=== PATIENT | male | born 1955 | race Caucasian/White ===

== ENCOUNTER 2017-05-14 12:48 | Emergency (ER) | payer BC ==
[~2017-05-14] VITALS: Ht 167.6 cm; Wt 78.8 kg
[~2017-05-14 12:48] MED LIST: ACET-1325; ASCA500 PO; CITRACAL/VIT D PO; CLON0.5T3 PO; INSDGI SC; JANUMET PO; METO50TA7 PO; MIRAPEX 0.5 MG PO; MULT-506 PO; NRN600 PO; OFLO0.3S OP; OMEG10007 PO; PRED1SUS3; TRAM-10 PO
[2017-05-14 12:53] VITALS: TEMP 37.4; Ht 167.6 cm; Wt 78.8 kg
--- NOTE | 2017-05-14 13:10 | EMERGENCY ROOM VISIT NOTE ---
History Report prepared by Matheus: Shalom Uribe Under the Supervision of: Dr. Antoinette Damon D.O. First contact with patient: 12:55 Chief Complaint: URINARY SYMPTOMS Stated Complaint: BLOOD IN URINE, [place] TO GO Nursing Triage Summary: pt reports yesterday afternoon feeling poorly like getting the flu. all day yesterday when urinating had pain and burning, also noticed blood. has non productive cough, sore throat, light fever' pt reports cathing self last night and got a little more out. see dr reyes for urology History of Present Illness The patient is a 62 year old male who presents to the Emergency Room with complaints of abnormal urinary symptoms that began yesterday. He has a past medical history of diabetes, a urethral stricture, and past UTIs. Because of this, he is supposed to place a catheter in his bladder once a week. He states that he has not been doing it as often as he should be. Yesterday while he was mowing the lawn, he suddenly began to feel diffuse body aches. He then could not control his urine and noticed that he was urinating blood. He is also experiencing burning with urination as well. He denies any other penile discharge, scrotal swelling, or rashes. He also denies any fevers or abdominal pain. He is experiencing chills. Source of History: patient Onset: yesterday Position: other () Symptom Intensity: moderate Quality: other (Burning with urination, hematuria, and incontinence) Timing: constant Associated Symptoms: + chills, No fevers, No abdominal pain, No rash Note: He denies any penile discharge or scrotal swelling. Review of Systems See HPI for pertinent positives & negatives. A total of 10 systems reviewed and were otherwise negative. Past Medical & Surgical Medical Problems: (1) Diabetes Surgical Problems: (1) Urethral stricture Family History Omitted secondary to the patient's age. Social History Smoking Status: Current Some Day Smoker Smokeless Tobacco Use: No Drug Use: none Marital Status: Housing Status: lives with family Current/Historical Medications Scheduled Ascorbic Acid (Vitamin C), 500 MG PO DAILY Calcium Carbonate-Vitamin D (Calcium + D), 1 TAB PO DAILY Cephalexin (Keflex), 1 CAP PO BID Clonazepam (Clonazepam), 0.5 MG PO HS Fish Oil ([place]-3), 2 CAP PO DAILY Gabapentin (Gabapentin), 600 MG PO BID Hydroxychloroquine Sulfate (Plaquenil), 400 MG PO DAILY Insulin Glargine (Lantus Solostar), 12 UNITS SC HS Liraglutide (Victoza), 1.8 MCG INJ DAILY Lovastatin (Mevacor), 40 MG PO DAILY Metformin Hcl (Glucophage), 1,000 MG PO BIDM Metoprolol Succinate (Metoprolol Succinate ER), 50 MG PO DAILY Mirabegron (Myrbetriq Er), 50 MG PO DAILY Multivitamin (Multivitamin), 1 TAB PO DAILY Pramipexole Dihydrochloride (Pramipexole Dihydrochlori), 0.5 MG PO BID Ramipril (Ramipril), 5 MG PO DAILY Tramadol HCl (Tramadol HCl), 100 MG PO HS Triamcinolone Acet (Triamcinolone Acetonide), 1 APPLN TOP 2-3XDAILY Allergies Coded Allergies: Penicillins (Unverified Allergy, Mild, Hives, itching, 10/31/15) Physical Exam Vital Signs Date Time Temp Pulse Resp B/P (MAP) Pulse Ox O2 Delivery O2 Flow Rate FiO2 05/14/17 18:05 75 18 120/72 93 05/14/17 16:19 74 18 101/63 96 Room Air 05/14/17 14:40 72 18 120/72 96 Room Air 05/14/17 12:53 37.4 76 18 151/96 95 Room Air Physical Exam GENERAL: alert, well appearing, well nourished, no distress, non-toxic EYE EXAM: normal conjunctiva, PERRL and EOM's grossly intact OROPHARYNX: no exudate, no erythema, lips, buccal mucosa, and tongue normal and mucous membranes are dry NECK: supple, no nuchal rigidity, no adenopathy, non-tender LUNGS: Clear to auscultation. Normal chest wall mechanics HEART: no murmurs, S1 normal and S2 normal ABDOMEN: abdomen soft, non-tender, normo-active bowel sounds, no masses, no rebound or guarding. BACK: Back is symmetrical on inspection and there is no deformity, no midline tenderness, no CVA tenderness. SKIN: no rashes and no bruising UPPER EXTREMITIES: upper extremities are grossly normal. LOWER EXTREMITIES: No pitting edema. NEURO EXAM: Normal sensorium, cranial nerves II-XII grossly intact, normal speech, no gross weakness of arms, no gross weakness of legs. Medical Decision & Procedures ER Provider Diagnostic Interpretation: Radiology results have been interpreted by the radiologist and reviewed by me. EXAMINATION: RENAL ULTRASOUND CLINICAL HISTORY: Back pain. Urinary tract infection. COMPARISON STUDY: CT scan performed October 2006 FINDINGS: The right kidney measures 12.8 cm.. The left kidney measures 12.1 cm.. There is no evidence of hydronephrosis. There are multiple bilateral renal cysts. The largest in the right measures 10.3 cm. The largest on the left measures 7.6 cm. Several cysts contain thin septations. There are no significant mural nodules. There is mild irregular bladder wall thickening. The prostate is enlarged measuring 4.7 cm. Neither ureteral jet was visualized. IMPRESSION : 1. Multiple large bilateral renal cysts 2. No evidence of hydronephrosis 3. Moderate irregular bladder wall thickening, possibly secondary to bladder outlet obstruction, given the enlarged prostate which measures 4.7 cm. Electronically signed by: Som Stevenson M.D. 05/14/2017 4:58 PM Dictated Date/Time: 05/14/2017 4:56 PM Laboratory Results 05/14/17 13:28 Red Blood Count 4.78, Mean Corpuscular Volume 85.6, Mean Corpuscular Hemoglobin 29.7, Mean Corpuscular Hemoglobin Concent 34.7, Mean Platelet Volume 9.2, Neutrophils (%) (Auto) 82.5, Lymphocytes (%) (Auto) 8.3, Monocytes (%) (Auto) 8.1, Eosinophils (%) (Auto) 0.6, Basophils (%) (Auto) 0.1, Neutrophils # (Auto) 11.56, Lymphocytes # (Auto) 1.16, Monocytes # (Auto) 1.13, Eosinophils # (Auto) 0.08, Basophils # (Auto) 0.01 05/14/17 13:28 Test 05/14/17 13:28 05/14/17 15:10 White Blood Count 13.99 K/uL (4.8-10.8) Red Blood Count 4.78 M/uL (4.7-6.1) Hemoglobin 14.2 g/dL (14.0-18.0) Hematocrit 40.9 % (42-52) Mean Corpuscular Volume 85.6 fL (80-100) Mean Corpuscular Hemoglobin 29.7 pg (25-34) Mean Corpuscular Hemoglobin Concent 34.7 g/dl (32-36) Platelet Count 178 K/uL (130-400) Mean Platelet Volume 9.2 fL (7.4-10.4) Neutrophils (%) (Auto) 82.5 % Lymphocytes (%) (Auto) 8.3 % Monocytes (%) (Auto) 8.1 % Eosinophils (%) (Auto) 0.6 % Basophils (%) (Auto) 0.1 % Neutrophils # (Auto) 11.56 K/uL (1.4-6.5) Lymphocytes # (Auto) 1.16 K/uL (1.2-3.4) Monocytes # (Auto) 1.13 K/uL (0.11-0.59) Eosinophils # (Auto) 0.08 K/uL (0-0.5) Basophils # (Auto) 0.01 K/uL (0-0.2) RDW Standard Deviation 42.0 fL (36.4-46.3) RDW Coefficient of Variation 13.4 % (11.5-14.5) Immature Granulocyte % (Auto) 0.4 % Immature Granulocyte # (Auto) 0.05 K/uL (0.00-0.02) Anion Gap 5.0 mmol/L (3-11) Est Creatinine Clear Calc Drug Dose 73.7 ml/min Estimated GFR () 91.8 Estimated GFR (Non- 79.2 BUN/Creatinine Ratio 17.0 (10-20) Lactic Acid Level 1.6 mmol/L (0.4-2.0) Calcium Level 8.9 mg/dl (8.5-10.1) Total Bilirubin 1.0 mg/dl (0.2-1) Aspartate Amino Transf (AST/SGOT) 12 U/L (15-37) Alanine Aminotransferase (ALT/SGPT) 24 U/L (12-78) Alkaline Phosphatase 104 U/L (45-117) Total Protein 6.5 gm/dl (6.4-8.2) Albumin 3.3 gm/dl (3.4-5.0) Globulin 3.2 gm/dl (2.5-4.0) Albumin/Globulin Ratio 1.0 (0.9-2) Urine Color YELLOW Urine Appearance CLEAR (CLEAR) Urine pH 6.5 (4.5-7.5) Urine Specific [place] 1.020 (1.000-1.030) Urine Protein 1+ (NEG) Urine Glucose (UA) NEG (NEG) Urine Ketones NEG (NEG) Urine Occult Blood 3+ (NEG) Urine Nitrite POS (NEG) Urine Bilirubin NEG (NEG) Urine Urobilinogen NEG (NEG) Urine Leukocyte Esterase MODERATE (NEG) Urine WBC (Auto) >30 /hpf (0-5) Urine RBC (Auto) >30 /hpf (0-4) Urine Hyaline Casts (Auto) 1-5 /lpf (0-5) Urine Epithelial Cells (Auto) 0-5 /lpf (0-5) Urine Bacteria (Auto) 4+ (NEG) Laboratory results per my review. Medications Administered Medications (Trade) Dose Ordered Sig/Katerina Route Start Time Stop Time Status Last Admin Dose Admin Ceftriaxone Sodium (Rocephin Inj) 1 gm NOW STAT IV 05/14/17 15:45 05/14/17 15:46 DC 05/14/17 15:54 1 GM ED Course 1255: The patient was evaluated in room A9. A complete history and physical exam was performed. 1322: Blader scan revealed 52 ml of urine. 1545: Ordered Rocephin Inj 1 gm IV 1712: I updated the patient at this time. He is trying to urinate. 1729: The patient was able to urinate and feels better. He also feels like he was able to empty his bladder. 1751: Upon reevaluation, the patient is feeling better. I discussed the findings and the treatment plan with the patient. He verbalizes agreement and understanding. He was discharged home. Medical Decision Differential diagnosis: Etiologies such as renal colic, infections, inflammatory bowel disease, UTI, urinary retention, urethral stricture, and medication ADR. No evidence of DKA, TONI, doubt bacteremia/sepsis. Pt improved here with meds/ IVF. Able to urinate and felt stream was improved and that he could adequately empty his bladder. Discussed f/u with urology, sx to watch/return for, he verbalized understanding and was agreeable with plan. VS stable, ambulated with a steady gait and well appearing. No clinical findings of pyelo, doubt renal stone. Likely component of bladder outlet obstruction due to enlarged prostate. Medication Reconcilliation Current Medication List: was personally reviewed by me Blood Pressure Screening Patient's blood pressure: Elevated blood pressure Blood pressure disposition: Elevated BP felt to be situational Impression Primary Impression: Urinary tract infection Additional Impression: Dysuria Scribe Attestation The scribe's documentation has been prepared under my direction and personally reviewed by me in its entirety. I confirm that the note above accurately reflects all work, treatment, procedures, and medical decision making performed by me. Departure Information Dispostion Home / Self-Care Prescriptions Cephalexin (KEFLEX) 500 Mg Cap 1 CAP PO BID for 7 Days, #14 CAP Prov: Antoinette Damon, DO 05/14/17 Referrals No Doctor, Assigned (PCP) Forms HOME CARE DOCUMENTATION FORM, IMPORTANT VISIT INFORMATION Patient Instructions My [facility] Additional Instructions Please call and follow-up with Dr. Reyes. Please take the antibiotics as prescribed and drink more water. Continue your other usual medications and check your blood sugar daily. If you have abdominal pain, worsening back pain, fevers/chills, are unable to urinate, are passing blood clots with urination, develop dizziness, vomiting, or you have any other new or concerning symptoms, please return to the emergency room. Problem Qualifiers Primary Impression: Urinary tract infection Urinary tract infection type: acute cystitis Hematuria presence: with hematuria Qualified Codes: N30.01 - Acute cystitis with hematuria
[2017-05-14] MEDS ORDERED: TPRSR/50 PO (13:42)
[2017-05-14] MEDS ORDERED: MIRA1TAB3 PO (13:42)
[2017-05-14] MEDS ORDERED: MRP5 PO (13:42)
[2017-05-14] MEDS ORDERED: ULT50 PO (13:42)
[2017-05-14] MEDS ORDERED: KLN5X PO (13:42)
[2017-05-14] MEDS ORDERED: INSDGIPEN SC (13:42)
[2017-05-14] MEDS ORDERED: PLQ200 PO (13:42)
[2017-05-14] MEDS ORDERED: METF-384 PO (13:42)
[2017-05-14] MEDS ORDERED: RAMI5CAP PO (13:42)
[2017-05-14 13:48] LABS: BASO % 0.1 %; BASO ABS # 0.01 K/uL (0-0.2); COMPLETE YES; EOS % 0.6 %; HEMATOCRIT 40.9 % (42-52); IG% 0.4 %; LYMPH % 8.3 %; LYMPH ABS # 1.16 K/uL (1.2-3.4); MEAN CELL VOLUME 85.6 fL (80-100); MEAN CORPUSCULAR HEMOGLOBIN 29.7 pg (25-34); MEAN CORPUSCULAR HGB CONC 34.7 g/dl (32-36); MEAN PLATELET VOLUME 9.2 fL (7.4-10.4); MONO % 8.1 %; NEUT % 82.5 %; PLATELET COUNT 178 K/uL (130-400); RED BLOOD COUNT 4.78 M/uL (4.7-6.1); WHITE BLOOD COUNT 13.99 K/uL (4.8-10.8)
[2017-05-14] MEDS ORDERED: ASCO500T3 PO (13:54)
[2017-05-14] MEDS ORDERED: NRN600 PO (13:54)
[2017-05-14] MEDS ORDERED: LOVA40TA4 PO (13:54)
[2017-05-14] MEDS ORDERED: HYDR200T5 PO (13:54)
[2017-05-14] MEDS ORDERED: OMEG10007 PO (13:54)
[2017-05-14] MEDS ORDERED: LIRA18IN INJ (13:54)
[2017-05-14] MEDS ORDERED: CALC600T9 PO (13:54)
[2017-05-14] MEDS ORDERED: MULT-506 PO (13:54)
[2017-05-14] MEDS ORDERED: TRIA0.5C4 TOP (13:54)
[2017-05-14 14:06] LABS: CALCIUM 8.9 mg/dl (8.5-10.1); POTASSIUM 4.3 mmol/L (3.5-5.1)
[2017-05-14 15:23] LABS: URINE APPEARANCE CLEAR (CLEAR); URINE BILIRUBIN NEG (NEG); URINE COLOR YELLOW; URINE EPITHELIAL CELL AUTO 0-5 /lpf (0-5); URINE NITRITE POS (NEG); URINE PH 6.5 (4.5-7.5); UROBILINOGEN NEG (NEG); ZZUR CULT IF INDIC CLEAN CATCH YES
[2017-05-14 15:28] LABS: MANUAL MICROSCOPIC REQUIRED? NO; REVIEW REQ? NO
[2017-05-14] MEDS ORDERED: CEFTRIAXONE SOD INJ 1 GM ADDVIAL IV STA (15:45)
--- NOTE | 2017-05-14 16:59 | DIAGNOSTIC IMAGING REPORT ---
EXAMINATION: RENAL ULTRASOUND CLINICAL HISTORY: Back pain. Urinary tract infection. COMPARISON STUDY: CT scan performed October 2006 FINDINGS: The right kidney measures 12.8 cm.. The left kidney measures 12.1 cm.. There is no evidence of hydronephrosis. There are multiple bilateral renal cysts. The largest in the right measures 10.3 cm. The largest on the left measures 7.6 cm. Several cysts contain thin septations. There are no significant mural nodules. There is mild irregular bladder wall thickening. The prostate is enlarged measuring 4.7 cm. Neither ureteral jet was visualized. IMPRESSION : 1. Multiple large bilateral renal cysts 2. No evidence of hydronephrosis 3. Moderate irregular bladder wall thickening, possibly secondary to bladder outlet obstruction, given the enlarged prostate which measures 4.7 cm. Electronically signed by: Som Stevenson M.D. 05/14/2017 4:58 PM Dictated Date/Time: 05/14/2017 4:56 PM
[2017-05-14] MEDS ORDERED: CEPH-571 PO (17:47)
[2017-05-14 18:05] VITALS: BP 120/72; PULSE 75; O2SAT 93
== END 2017-05-14 18:06 | disposition home or self-care (01) ==
LOC: C.EDB 12:49 → C.EDA 18:06
DX: N30.01 Acute cystitis with hematuria (principal); R30.0 Dysuria; E11.9 Type 2 diabetes mellitus without complications; F17.200 Nicotine dependence, unspecified, uncomplicated; Z79.4 Long term (current) use of insulin

== ENCOUNTER → 2017-06-03 | Outpatient (CLI) | payer BC ==
[~2017-06-03] MED LIST changes: -ACET-1325; -ASCA500 PO; +ASCO500T3 PO; +CALC600T9 PO; -CITRACAL/VIT D PO; -CLON0.5T3 PO; +HYDR200T5 PO; -INSDGI SC; +INSDGIPEN SC; -JANUMET PO; +KLN5X PO; +LIRA18IN INJ; +LOVA40TA4 PO; +METF-384 PO; -METO50TA7 PO; +MIRA1TAB3 PO; -MIRAPEX 0.5 MG PO; +MRP5 PO; -OFLO0.3S OP; -PRED1SUS3; +RAMI5CAP PO; +TPRSR/50 PO; -TRAM-10 PO; +TRIA0.5C4 TOP; +ULT50 PO
== END | disposition home or self-care (01) ==
LOC: C.LABSPEC 17:28
PROVIDERS: ATTEND Urology
DX: R39.15 Urgency of urination (principal)

== ENCOUNTER → 2017-12-07 | Outpatient (CLI) | payer OTHER ==
--- NOTE | 2017-12-07 13:53 | DIAGNOSTIC IMAGING REPORT ---
CHEST 2 VIEWS ROUTINE HISTORY: Z87.898 History of fever R05 Cough R09.89 Lung cracklesRule out pn COMPARISON: Chest 09/08/2011. FINDINGS: The lungs are clear. No pleural effusions. No pneumothorax. Left shoulder resurfacing is again noted. Mildly tortuous thoracic aorta. The heart is top normal in size. IMPRESSION: No acute process. Electronically signed by: Mega Alves M.D. 12/07/2017 1:52 PM Dictated Date/Time: 12/07/2017 1:51 PM
== END | disposition home or self-care (01) ==
LOC: C.RAD1850 13:40
PROVIDERS: ATTEND Internal Medicine
DX: R05 Cough (principal); Z87.898 Personal history of other specified conditions; R09.89 Other specified symptoms and signs involving the circulatory and respiratory systems

== ENCOUNTER 2022-03-03 23:28 | Observation (INO) ==
[2022-03-03] MEDS ORDERED: ONDANSETRON INJ 2 MG/ML 2 ML VIAL IV STA (23:37)
--- NOTE | 2022-03-04 00:12 | Emergency Department Note ---
History of Present Illness General Chief complaint: Syncope Stated complaint: DIABETIC/DIZZY/NAUSEA/LIGHTHEADED Time Seen by Provider: 03/03/22 23:34 History of Present Illness This 67 yo presents to the ER complaining of syncopal episode Location: Generalized Quality: Syncope Severity: Moderate Duration: Tonight Timing: Tonight Context: Patient felt his sugar was getting low ate some cookies and then sent home and passed out. Modifying factors: better with eating; worse with activity No extra insulin today. No change in his diet. Patient states when he got home from the [employer] he felt like his blood sugar was low and ate some cookies then sat down and got pale and passed out. His family called EMS and he was brought in. Patient states he feels much better now and has no current medical complaints. Home Medications Medication Instructions Recorded Confirmed Type ascorbic acid (vitamin C) 1,000 mg 1 gm PO 2XWK tab 03/22/19 03/04/22 History tablet hydroxychloroquine 200 mg tablet 400 mg PO QPM tab 03/22/19 03/04/22 History liraglutide 0.6 mg/0.1 mL (18 mg/3 1.8 mg SUBCUT QAM #81 ml 03/22/19 03/04/22 History mL) subcutaneous pen injector metformin 1,000 mg tablet 1,000 mg PO BID #180 tab 03/22/19 03/04/22 History metformin 500 mg tablet 500 mg PO QPM tab 03/22/19 03/04/22 History multivitamin (Multiple Vitamins) 1 tab PO QAM 03/22/19 03/04/22 History omega-3 fatty acids 1,000 mg 1,000 mg PO QAM cap 03/28/20 03/04/22 History capsule (Fish Oil Concentrate) albuterol sulfate 90 mcg/actuation 2 puff INHALATION QID PRN #8.5 g 12/25/20 03/04/22 Rx aerosol inhaler (Ventolin HFA) insulin aspart U-100 100 unit/mL 1 sliding scale dose SUBCUT 12/26/20 03/04/22 History (3 mL) subcutaneous pen (Novolog DIRECTED Flexpen U-100 Insulin aspart) insulin glargine 100 unit/mL (3 24 unit SUBCUT HS ml 04/17/21 03/04/22 History mL) subcutaneous pen (Lantus Solostar U-100 Insulin) CPAP Machine #1 ea 05/30/21 10/23/21 Rx CPAP Supplies #1 ea 05/30/21 10/23/21 Rx gabapentin 600 mg tablet 600 mg PO BID #180 tab 09/12/21 03/04/22 Rx sildenafil 100 mg tablet See Rx Instructions .ROUTE 10/16/21 03/04/22 Rx .COMPLEX #20 tab metoprolol succinate 50 mg 50 mg PO QAM #90 tab 10/17/21 03/04/22 Rx tablet,extended release 24 hr ramipril 5 mg capsule 5 mg PO QAM #90 cap 10/17/21 03/04/22 Rx solifenacin 10 mg tablet (Vesicare) 10 mg PO DAILY #30 tab 10/23/21 03/04/22 Rx pramipexole 0.5 mg tablet 0.5 mg PO BID #180 tab 12/09/21 03/04/22 Rx lovastatin 40 mg tablet 40 mg PO QPM #90 tab 12/26/21 03/04/22 Rx clonazepam 0.5 mg tablet 0.5 mg PO HS #90 tab 02/06/22 03/04/22 Rx tramadol 50 mg tablet 100 mg PO HS PRN #180 tab 02/06/22 03/04/22 Rx Allergies Allergy/AdvReac Type Severity Reaction Status Date / Time Penicillins AdvReac Intermediate Hives, Verified 03/04/22 00:42 itching Past Med/Surg History Medical History Anemia, normocytic normochromic Anxiety [place] esophagus BPH (benign prostatic hyperplasia) Bronchitis HX-LAST FALL-LAST INHALER USE SUMMER 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 persistent despite ACEI d/c. 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 Denies any further recurrence of lightheadedness or palpitations. Presently declines repeat study. Stress echocardiogram 10/2020 unremarkable at 86% MPHR. No arrhythmia at that time.-PCP 05/30/2021 note Type 2 diabetes mellitus Urge incontinence of urine Surgical History Fusion of spine LUMBAR H/O shoulder surgery LEFT H/O sinus surgery H/O umbilical hernia repair (09/05/21) Open Umbilical Hernia Repair - Shane Urena, 09/05/2021 History of cataract surgery RT/LEFT History of colonoscopy History of cystoscopy "COLLAPSED URETHRA" S/P LASIK surgery S/P lumbar laminectomy X 2 [employer] teeth removed Family History Mother Ovarian cancer Father Diabetes Other No family history of adverse response to anesthesia Denies family history of Prostate cancer Breast cancer Lung cancer Colorectal cancer Social History Smoking Status: Current every day smoker Tobacco Type: Cigarettes Cigarettes Per Day: 5-6 CIGS A DAY; Second Hand Exposure: No; Hx Alcohol Use: Yes Alcohol type: beer and hard liquor Hx Substance Use: No Preferred Language: Micronesian Communication Ability: Effective Visual Impairment: Limited Hearing Ability: Normal File Conversion Operator Required: No Beliefs That Will Affect Care: None marital status: / Current Living Situation: Alone current occupational status: retired 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 Feels Safe at Home: Yes Childhood Exposure to Second-Hand Smoke: No caffeine: Yes Dental Care, Regularly: Yes Physical Activity Frequency: Daily Seatbelt Use: never Sunscreen Use: Yes Assistive Devices: Glasses Review of Systems A total of 10 systems reviewed and were otherwise negative Physical Exam Vital Signs Vital Signs - 24 hr 03/03/22 23:40 03/04/22 01:00 Temperature 36.5 C Temperature Source Oral Pulse Rate 70 Pulse Rate [Finger] 75 Respiratory Rate 18 18 Blood Pressure 101/58 L Blood Pressure [Right Arm] 108/65 Blood Pressure Mean 72 Blood Pressure Mean [Right Arm] 79 Blood Pressure Position Standing Pulse Oximetry 94 Oxygen Delivery Method Room Air Sepsis Recent Fever Within 48 Hours No Sepsis New/Unexplained Change in Mental Status No Sepsis Action Taken by Nursing No Action Required VITALS: Vitals are noted on the nurse's note and reviewed by myself. Vital signs stable. GENERAL: Pleasant gentleman, in no acute distress, nondiaphoretic, well- developed well-nourished. SKIN: The skin was without rashes, erythema, edema, or bruising. There is no tenting of the skin. Capillary reflex less than 2 seconds. HEAD: Normocephalic atraumatic. EARS: External auditory canals clear, EYES: Pupils equal round and reactive to light and accommodation. Conjunctivae without injection, sclerae without icterus. Extraocular movements intact. NOSE: Patent, turbinates without inflammation or discharge. MOUTH: Mucous membranes moist. Pharynx without erythema or exudate. Uvula midline. Airway patent. Tongue does not deviate. NECK: Supple without nuchal rigidity. No lymphadenopathy. No thyromegaly. Cervical spine is nontender. No JVD. HEART: Regular rate and rhythm LUNGS: Clear to auscultation bilaterally without wheezes, rales or rhonchi. No retractions or accessory muscle use. ABDOMEN: Positive bowel sounds x 4. Normal tympanic percussion. Soft, nontender, without masses or organomegaly. [place] sign negative. No guarding or rebound tenderness. No CVA tenderness MUSCULOSKELETAL: No muscle atrophy, erythema, or edema noted. NEURO: Patient was alert and oriented to person place and time. Normal sensation to light and sharp touch. No focal neurological deficits. Course Administered Medications Sodium Chloride (Nss 1000ml) 500 mls @ 999 mls/hr IV .Q31M ONE Stop: 03/04/22 02:08 Last Admin: 03/04/22 01:50 Dose: 999 mls/hr Documented by: [id number] Discontinued Medications Ceftriaxone Sodium (Rocephin) 2,000 mg in 70 mls @ 140 mls/hr IV NOW STA Stop: 03/04/22 02:05 Last Admin: 03/04/22 01:49 Dose: 140 mls/hr Documented by: [id number] Ondansetron HCl (Ondansetron Inj 2 Mg/Ml 2 Ml Vial) 4 mg IV NOW STA Stop: 03/03/22 23:38 Last Admin: 03/04/22 00:55 Dose: Not Given Documented by: [id number] Medical Decision Making Medical Records Attestation: I reviewed the patient's medical records. Home Medications Current Medication List: was personally reviewed by me Laboratory Data Attestation: I reviewed the patient's lab results. Result diagrams: 03/04/22 00:06 03/04/22 00:06 Lab Results 03/03/22 03/04/22 03/04/22 Range/Units 23:36 00:06 00:06 WBC 10.45 (4.8-10.8) K/uL RBC 4.75 (4.7-6.1) M/uL Hgb 14.3 (14.0-18.0) g/dL Hct 42.0 (42-52) % MCV 88.4 (80-100) fL MCH 30.1 (25-34) pg MCHC 34.0 (32-36) g/dL RDW Std Deviation 43.7 (36.4-46.3) fL RDW Coeff of Sara 13.5 (11.5-14.5) % Plt Count 253 (130-400) K/uL MPV 9.2 (7.4-10.4) fL Immature Gran % (Auto) 1.8 % Neut % (Auto) 73.1 % Lymph % (Auto) 13.2 % [place] % (Auto) 9.5 % Eos % (Auto) 2.2 % Baso % (Auto) 0.2 % Neut # (Auto) 7.64 H (1.4-6.5) K/uL Lymph # (Auto) 1.38 (1.2-3.4) K/uL [place] # (Auto) 0.99 H (0.11-0.59) K/uL Eos # (Auto) 0.23 (0-0.5) K/uL Baso # (Auto) 0.02 (0-0.2) K/uL Immature Gran # (Auto) 0.19 H (0.00-0.02) K/uL VBG pH (7.36-7.41) VBG pCO2 (38-50) mmHg VBG pO2 mmHg VBG HCO3 mmol/L VBG O2 Saturation % VBG Base Excess mEq/L Sodium 136 (136-145) mmol/L Potassium 4.3 (3.5-5.1) mmol/L Chloride 103 (98-107) mmol/L Carbon Dioxide 24 (21-32) mmol/L Anion Gap 9 (3-11) BUN 29 H (6-23) mg/dl Creatinine 1.30 (0.6-1.4) mg/dl Est Cr Clr Drug Dosing 55.3 ml/min Est GFR ( Amer) 64.5 ml/min Est GFR (Non-Af Amer) 55.7 ml/min BUN/Creatinine Ratio 22.3 H (10-20) Glucose 250 H (70-99(Fasting)) mg/dl POC Glucose 263 H (70-99) mg/dl Calcium 9.0 (8.5-10.1) mg/dl Total Bilirubin 0.4 (0.2-1.0) mg/dl AST 16 (13-39) U/L ALT 17 (7-52) U/L Alkaline Phosphatase 95 (34-104) U/L Troponin I High Sens 57.0 H* (0-20) pg/ml Total Protein 6.2 (6.0-8.3) gm/dl Albumin 3.6 (3.4-5.0) gm/dl Globulin 2.6 (2.5-4.0) gm/dl Albumin/Globulin Ratio 1.4 (0.9-2) Urine Color Urine Appearance (Clear) Urine pH (4.5-7.5) Ur Specific [place] (1.000-1.030) Urine Protein (Negative) Urine Glucose (UA) (Negative) Urine Ketones (Negative) Urine Blood (Negative) Urine Nitrite (Negative) Urine Bilirubin (Negative) Urine Urobilinogen (Negative) Ur Leukocyte Esterase (Negative) Urine WBC (Auto) (0-5) /hpf Urine RBC (Auto) (0-4) /hpf U Hyaline Cast (Auto) (0-5) /lpf U Epithel Cells (Auto) (0-5) /lpf Urine Bacteria (Auto) (Negative) 03/04/22 03/04/22 Range/Units 00:06 00:36 WBC (4.8-10.8) K/uL RBC (4.7-6.1) M/uL Hgb (14.0-18.0) g/dL Hct (42-52) % MCV (80-100) fL MCH (25-34) pg MCHC (32-36) g/dL RDW Std Deviation (36.4-46.3) fL RDW Coeff of Sara (11.5-14.5) % Plt Count (130-400) K/uL MPV (7.4-10.4) fL Immature Gran % (Auto) % Neut % (Auto) % Lymph % (Auto) % [place] % (Auto) % Eos % (Auto) % Baso % (Auto) % Neut # (Auto) (1.4-6.5) K/uL Lymph # (Auto) (1.2-3.4) K/uL [place] # (Auto) (0.11-0.59) K/uL Eos # (Auto) (0-0.5) K/uL Baso # (Auto) (0-0.2) K/uL Immature Gran # (Auto) (0.00-0.02) K/uL VBG pH 7.34 L (7.36-7.41) VBG pCO2 47 (38-50) mmHg VBG pO2 50 mmHg VBG HCO3 25 mmol/L VBG O2 Saturation 81.4 % VBG Base Excess -0.8 mEq/L Sodium (136-145) mmol/L Potassium (3.5-5.1) mmol/L Chloride (98-107) mmol/L Carbon Dioxide (21-32) mmol/L Anion Gap (3-11) BUN (6-23) mg/dl Creatinine (0.6-1.4) mg/dl Est Cr Clr Drug Dosing ml/min Est GFR ( Amer) ml/min Est GFR (Non-Af Amer) ml/min BUN/Creatinine Ratio (10-20) Glucose (70-99(Fasting)) mg/dl POC Glucose (70-99) mg/dl Calcium (8.5-10.1) mg/dl Total Bilirubin (0.2-1.0) mg/dl AST (13-39) U/L ALT (7-52) U/L Alkaline Phosphatase (34-104) U/L Troponin I High Sens (0-20) pg/ml Total Protein (6.0-8.3) gm/dl Albumin (3.4-5.0) gm/dl Globulin (2.5-4.0) gm/dl Albumin/Globulin Ratio (0.9-2) Urine Color Yellow Urine Appearance Cloudy A (Clear) Urine pH 7.0 (4.5-7.5) Ur Specific [place] 1.030 (1.000-1.030) Urine Protein Negative (Negative) Urine Glucose (UA) 3+ H (Negative) Urine Ketones Negative (Negative) Urine Blood Negative (Negative) Urine Nitrite Positive A (Negative) Urine Bilirubin Negative (Negative) Urine Urobilinogen Negative (Negative) Ur Leukocyte Esterase 2+ H (Negative) Urine WBC (Auto) >30 H (0-5) /hpf Urine RBC (Auto) 0-4 (0-4) /hpf U Hyaline Cast (Auto) 0 (0-5) /lpf U Epithel Cells (Auto) 10-20 H (0-5) /lpf Urine Bacteria (Auto) 4+ H (Negative) Imaging Data Attestation: I personally reviewed and interpreted this imaging study as foll ows: MDM Narrative Prior records/ancillary studies reviewed. Triage Nursing notes reviewed. Additional history obtained from family. The patient's history was concerning for syncope. Differential diagnosis: Etiologies such as vasovagal event, infection, hypoglycemia, electrolyte abnormalities, cardiac sources, intracerebral event, toxicologic, neurologic, as well as others were entertained. Physical examination: As above ER treatment provided: IV hydration with normal saline On reassessment the patient felt better. Zofran, Rocephin An order was placed for continuous cardiac monitoring. The monitor shows a rate of 60-100 with a sinus rhythm. Diagnostics interpretation by me: #1 ECG: Ordered for syncope EKG: Normal sinus, left axis, Q waves in the inferior leads, rate of 74. Impression normal sinus rhythm with a left axis deviation Q waves in inferior leads interpreted by myself I think arrhythmia is unlikely. EKG shows normal sinus rhythm with no interval abnormalities such as QT prolongation or WPW. There are no findings to suggest Brugada syndrome. Cardiac monitoring in the emergency department reveals no tachycardic or bradycardic dysrhythmia. Hypertrophic cardiomyopathy was considered but there are no clear historical elements pointing toward this. EKG is not suggestive. The QRS voltage is not extremely large #2 EKG ordered for positive troponin EKG: Normal sinus, Q waves in inferior leads, rate of 72. Impression normal sinus rhythm with Q waves in inferior leads left axis interpreted by myself I think arrhythmia is unlikely. EKG shows normal sinus rhythm with no interval abnormalities such as QT prolongation or WPW. There are no findings to suggest Brugada syndrome. Cardiac monitoring in the emergency department reveals no tachycardic or bradycardic dysrhythmia. Hypertrophic cardiomyopathy was consi dered but there are no clear historical elements pointing toward this. EKG is not suggestive. The QRS voltage is not extremely large The labs revealed slightly elevated troponin and repeat was ordered. Urine concerning for infection and sent for culture. No prior urine culture for review. Imaging studies: Preliminary Findings Only See Final Report For Complete Findings CT HEAD: No intracranial hemorrhage, mass-effect or midline shift. There is no abnormal extra axial fluid collection. No evidence of acute infarct. Mild periventricular white matter hypodensities are most consistent with chronic microangiopathy. There is mucosal thickening of the visualized paranasal sinuses. No mastoid effusion. No fracture. Radiologist: Narda Dukes MD Consultation: A consultation was placed with the hospitalist. The case was discussed and diagnostics were reviewed. The patient was evaluated in the ER for further treatment. This appears to be consistent with syncope with elevated troponin and UTI. Medicine was consulted. He will be admitted. Patient was started on antibiotics and hydrated as above. By the evaluation outlined above emergent etiologies such as hypoglycemia, electrolyte abnormalities, intracerebral event, toxicologic, neurologic,as well as others were deemed relatively unlikely. The pt informed about the findings as listed above. All questions were answered and pleased with the treatment. The chart was completed utilizing [employer] voice recognition software. Grammatical errors, random word insertions, pronoun errors, and incomplete sentences are an occassional consequence of this system due to software limitations, ambient noise, and hardware issues. Any formal questions or concerns about the content, text, or information contained within the body of this dictation should be directly addressed to the physician assistant track coach for clarification. Impression & Plan Syncope, Acute UTI, Elevated troponin Discharge Plan Visit Data Chief Complaint: Syncope Stated Complaint: DIABETIC/DIZZY/NAUSEA/LIGHTHEADED ED Provider: Ray Velazco. ED Midlevel Provider: Comfort Brownlee Discharge Problem: Syncope, Acute UTI, Elevated troponin Patient Disposition: Admitted As Inpatient Condition: Good Forms Stand Alone Forms: My [facility] Nveloped Prescriptions Prescriptions: No Action gabapentin 600 mg tablet 600 mg PO BID Qty: 180 RF: 1 sildenafil 100 mg tablet See Rx Instructions .ROUTE .COMPLEX Qty: 20 RF: 11 metoprolol succinate 50 mg tablet extended release 24 hr 50 mg PO QAM Qty: 90 RF: 3 ramipril 5 mg capsule 5 mg PO QAM Qty: 90 RF: 3 pramipexole 0.5 mg tablet 0.5 mg PO BID Qty: 180 RF: 1 lovastatin 40 mg tablet 40 mg PO QPM Qty: 90 RF: 3 tramadol 50 mg tablet 100 mg PO HS PRN (Reason: Pain) Qty: 180 RF: 0 clonazepam 0.5 mg tablet 0.5 mg PO HS Qty: 90 RF: 0 solifenacin [Vesicare] 10 mg tablet 10 mg PO DAILY Qty: 30 RF: 11 (DME) CPAP Machine Misc See Rx Instructions .Route Qty: 1 RF: 0 (DME) CPAP Supplies Misc See Rx Instructions .Route Qty: 1 RF: 0 metformin 500 mg tablet 500 mg PO QPM RF: 0 metformin 1,000 mg tablet 1,000 mg PO BID Qty: 180 RF: 0 multivitamin [Multiple Vitamins] tablet 1 tab PO QAM RF: 0 hydroxychloroquine 200 mg tablet 400 mg PO QPM RF: 0 liraglutide 0.6 mg/0.1 mL (18 mg/3 mL) pen injector 1.8 mg subcut QAM Qty: 81 RF: 0 ascorbic acid (vitamin C) 1,000 mg tablet 1 gm PO 2XWK RF: 0 omega-3 fatty acids [Fish Oil Concentrate] 1,000 mg capsule 1,000 mg PO QAM RF: 0 albuterol sulfate [Ventolin HFA] 90 mcg/actuation HFA aerosol inhaler 2 puff inhalation QID PRN (Reason: shortness of breath or wheezing) Qty: 8.5 RF: 3 insulin aspart U-100 [Novolog Flexpen U-100 Insulin] 100 unit/mL (3 mL) Insulin Pen 1 sliding scale dose SUBCUT DIRECTED RF: 0 Lantus Solostar U-100 Insulin 100 unit/mL (3 mL) insulin pen 24 unit SUBCUT HS RF: 0 Referrals Referrals: Brandon Beltran MD [Primary Care Provider] - Discharge Problem: Syncope Qualifiers: Syncope type: unspecified Qualified Code(s): R55 - Syncope and collapse
[2022-03-04 00:23] LABS: Base Excess VBG -0.8 mEq/L; HCO3 VBG 25 mmol/L; Oxygen Saturation VBG 81.4 %; PCO2 VBG 47 mmHg (38-50); PO2 VBG 50 mmHg; pH VBG 7.34 (7.36-7.41)
[2022-03-04 00:25] LABS: Basophils # (auto) 0.02 K/uL (0-0.2); Basophils % (auto) 0.2 %; Eosinophils # (auto) 0.23 K/uL (0-0.5); Eosinophils % (auto) 2.2 %; Hemoglobin 14.3 g/dL (14.0-18.0); Immature Granulocytes # (auto) 0.19 K/uL (0.00-0.02); Immature Granulocytes % (auto) 1.8 %; Lymphocytes # (auto) 1.38 K/uL (1.2-3.4); Lymphocytes % (auto) 13.2 %; Mean Corpuscular Hemoglobin 30.1 pg (25-34); Mean Corpuscular Volume 88.4 fL (80-100); Mean Platelet Volume 9.2 fL (7.4-10.4); Monocytes # (auto) 0.99 K/uL (0.11-0.59); Monocytes % (auto) 9.5 %; Neutrophils # (auto) 7.64 K/uL (1.4-6.5); Neutrophils % (auto) 73.1 %; Platelet Count 253 K/uL (130-400); RDW Coefficient of Variation 13.5 % (11.5-14.5); RDW Standard Deviation 43.7 fL (36.4-46.3); Red Blood Count 4.75 M/uL (4.7-6.1); White Blood Count 10.45 K/uL (4.8-10.8)
[2022-03-04 00:44] LABS: Albumin Globulin Ratio 1.4 (0.9-2); Albumin Level 3.6 gm/dl (3.4-5.0); BUN Creatinine Ratio 22.3 (10-20); Bilirubin,Total 0.4 mg/dl (0.2-1.0); Creatinine Clr Calc Pharmacy 55.3 ml/min; Est GFR (African American) 64.5 ml/min; Est GFR (Non-African American) 55.7 ml/min; Globulin 2.6 gm/dl (2.5-4.0); Potassium 4.3 mmol/L (3.5-5.1); Total Protein 6.2 gm/dl (6.0-8.3)
[2022-03-04 01:20] LABS: Appearance Urine Cloudy (Clear); Bacteria Urine Automated 4+ (Negative); Bilirubin Urine Negative (Negative); Blood Urine Negative (Negative); Cast Urine Automated 0 /lpf (0-5); Color Urine Yellow; Glucose Urine UA 3+ (Negative); Ketones Urine Negative (Negative); Leukocyte Esterase Urine 2+ (Negative); Nitrite Urine Positive (Negative); Protein Urine Negative (Negative); RBC Urine Automated 0-4 /hpf (0-4); Urobilinogen Urine Negative (Negative); WBC Urine Automated >30 /hpf (0-5)
[2022-03-04] MEDS ORDERED: cefTRIAXone SODIUM 2,000 MG/70 ML BAG IV STA (01:36)
[2022-03-04] MEDS ORDERED: SODIUM CHLORIDE 0.9% 1000ML 500 ML IV ONE (01:38)
[2022-03-04] MEDS ORDERED: COUGH DROP (SUGAR FREE) LOZ 24 LOZ/1 BOX BUCCAL STA (02:42)
[2022-03-04] MEDS ORDERED: SODIUM CHLORIDE 0.9% 1000ML 1,000 ML IV SCH (03:45)
--- NOTE | 2022-03-04 03:53 | History & Physical Report ---
Date of Service March 04, 2022 Assessment & Plan (1) Syncope: Plan: 67 y/o M Hx BPH, HTN, HLD, DM II, RA. Presents following a syncopal episode. The pt had returned from watching fireworks and felt lightheaded. He assumed that this was due to low glucose, but when checked, his glucose was normal. His girlfriend then noted that he was pale and suggested calling EMS when he lost consciousness for a few minutes. She was able to guide him to the ground so that no trauma was sustained. He has not had any CP, palpitations or SOB. He has had dysuria for a few days. Initial labs were notable for a + UA and an elevated trop of 57. Repeat trop increased to 84. EKG demonstrated nonspecific lateral changes. 1) Syncope - cannot r/o cardiogenic etiology due to his trop. He does not recall palpitation or CP and did have a prodrome. Monitor on telemetry, echo pending. 2) Elevated trop - EKG is nonspecific. Trend trop, echo, cardiology consult. One dose Lovenox 1mg per kg provided. Cont statin, metoprolol, start ASA. 3) UTI - ceftriaxone provided pending cultures 4) DM - sliding scale + Lantus 5) HTN, HLD - cont statin, metoprolol, ramipril. 6) RA - cont hydroxychloroquine Full code - Lovenox prophylaxis Total time for this admit including review of labs, meds, imaging, records - discussion with pt and ER attending - 39 min (2) Acute UTI: (3) Elevated troponin: History of Present Illness Chief Complaint: Syncope Primary Care Provider: Brandon Beltran MD 67 y/o M Hx BPH, HTN, HLD, DM II, RA. Presents following a syncopal episode. The pt had returned from watching fireworks and felt lightheaded. He assumed that this was due to low glucose, but when checked, his glucose was normal. His girlfriend then noted that he was pale and suggested calling EMS when he lost consciousness for a few minutes. She was able to guide him to the ground so that no trauma was sustained. He has not had any CP, palpitations or SOB. He has had dysuria for a few days. Initial labs were notable for a + UA and an elevated trop of 57. Repeat trop increased to 84. EKG demonstrated nonspecific lateral changes. PMH: 1) HTN 2) HLD 3) IDDM 4) BPH 5) RA Surgical: 1) C2 fracture 2) Lumbar spine 3) L shoulder Social: Smokes 4-5 cigarettes daily. Occasional beer. Family: father age 101 Mother age 53 due to ovarian CA Allergies Allergy/AdvReac Type Severity Reaction Status Date / Time Penicillins AdvReac Intermediate Hives, Verified 03/04/22 00:42 itching Home Medications Medication Instructions Recorded Confirmed Type ascorbic acid (vitamin C) 1,000 mg 1 gm PO 2XWK tab 03/22/19 03/04/22 History tablet hydroxychloroquine 200 mg tablet 400 mg PO QPM tab 03/22/19 03/04/22 History liraglutide 0.6 mg/0.1 mL (18 mg/3 1.8 mg SUBCUT QAM #81 ml 03/22/19 03/04/22 History mL) subcutaneous pen injector metformin 1,000 mg tablet 1,000 mg PO BID #180 tab 03/22/19 03/04/22 History metformin 500 mg tablet 500 mg PO QPM tab 03/22/19 03/04/22 History multivitamin (Multiple Vitamins) 1 tab PO QAM 03/22/19 03/04/22 History omega-3 fatty acids 1,000 mg 1,000 mg PO QAM cap 03/28/20 03/04/22 History capsule (Fish Oil Concentrate) albuterol sulfate 90 mcg/actuation 2 puff INHALATION QID PRN #8.5 g 12/25/20 03/04/22 Rx aerosol inhaler (Ventolin HFA) insulin aspart U-100 100 unit/mL 1 sliding scale dose SUBCUT 12/26/20 03/04/22 History (3 mL) subcutaneous pen (Novolog DIRECTED Flexpen U-100 Insulin aspart) insulin glargine 100 unit/mL (3 24 unit SUBCUT HS ml 04/17/21 03/04/22 History mL) subcutaneous pen (Lantus Solostar U-100 Insulin) CPAP Machine #1 ea 05/30/21 10/23/21 Rx CPAP Supplies #1 ea 05/30/21 10/23/21 Rx gabapentin 600 mg tablet 600 mg PO BID #180 tab 09/12/21 03/04/22 Rx sildenafil 100 mg tablet See Rx Instructions .ROUTE 10/16/21 03/04/22 Rx .COMPLEX #20 tab metoprolol succinate 50 mg 50 mg PO QAM #90 tab 10/17/21 03/04/22 Rx tablet,extended release 24 hr ramipril 5 mg capsule 5 mg PO QAM #90 cap 10/17/21 03/04/22 Rx solifenacin 10 mg tablet (Vesicare) 10 mg PO DAILY #30 tab 10/23/21 03/04/22 Rx pramipexole 0.5 mg tablet 0.5 mg PO BID #180 tab 12/09/21 03/04/22 Rx lovastatin 40 mg tablet 40 mg PO QPM #90 tab 12/26/21 03/04/22 Rx clonazepam 0.5 mg tablet 0.5 mg PO HS #90 tab 02/06/22 03/04/22 Rx tramadol 50 mg tablet 100 mg PO HS PRN #180 tab 02/06/22 03/04/22 Rx Past Med/Surg History Medical History Anemia, normocytic normochromic Anxiety [place] esophagus BPH (benign prostatic hyperplasia) Bronchitis HX-LAST FALL-LAST INHALER USE SUMMER 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 persistent despite ACEI d/c. 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 Denies any further recurrence of lightheadedness or palpitations. Presently declines repeat study. Stress echocardiogram 10/2020 unremarkable at 86% MPHR. No arrhythmia at that time.-PCP 05/30/2021 note Type 2 diabetes mellitus Urge incontinence of urine Surgical History Fusion of spine LUMBAR H/O shoulder surgery LEFT H/O sinus surgery H/O umbilical hernia repair (09/05/21) Open Umbilical Hernia Repair - Shane Urena, 09/05/2021 History of cataract surgery RT/LEFT History of colonoscopy History of cystoscopy "COLLAPSED URETHRA" S/P LASIK surgery S/P lumbar laminectomy X 2 [place] teeth removed Family History Mother Ovarian cancer Father Diabetes Other No family history of adverse response to anesthesia Denies family history of Prostate cancer Breast cancer Lung cancer Colorectal cancer Social History Smoking Status: Current every day smoker Tobacco Type: Cigarettes Cigarettes Per Day: 5-6 CIGS A DAY; Second Hand Exposure: No; Hx Alcohol Use: Yes Alcohol type: beer and hard liquor Hx Substance Use: No Preferred Language: Yi Communication Ability: Effective Visual Impairment: Limited Hearing Ability: Normal Trimmer Climber Required: No Beliefs That Will Affect Care: None marital status: / Current Living Situation: Alone current occupational status: retired 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 [employer] 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 Safe at Home: Yes Childhood Exposure to Second-Hand Smoke: No caffeine: Yes Dental Care, Regularly: Yes Physical Activity Frequency: Daily Seatbelt Use: never Sunscreen Use: Yes Assistive Devices: Glasses Review of Systems Review of Systems: Gen: Denies fevers, night sweats, rigors, fatigue, malaise, weight loss/gain ENT: Denies congestion, throat pain, hearing loss Eyes: Denies acute visual changes CV: Denies CP, palpitations Pulmonary: Denies SOB, cough, wheezing GI: Denies N/V, diarrhea, constipation Neuro: + syncope as above Musculoskeletal: Denies joint pain, inflammation Endocrine: Denies polydipsia, polyuria Skin: Denies acute rashes or ulcers Physical Exam Physical Exam: General: AAO x 3, no distress ENT: No erythema or exudates, no thrush Eyes: PARKER, EOMI Head and neck: Normocephalic, atraumatic, No JVD, neck is supple. Chest/heart: Nontender, S1,2, RRR, no murmurs, no gallops Lungs: CTAB, no wheezing or crackles Abdomen: Nontender, nondistended, BS+ Neuro: AAO x 3, speech is clear, no unilateral weakness or loss of sensation, coordination intact Musculoskeletal: No joint inflammation, muscle tenderness, FROM Skin: No acute rashes or ulcers Extremities: No clubbing, cyanosis, edema Results & Data Results & Data ([facility]) Vital Signs (Past 12 Hours) Vital Signs Temp Pulse Pulse Resp BP BP Pulse Ox 03/04/22 02:22 75 18 125/72 95 03/04/22 01:00 75 18 108/65 03/03/22 23:40 97.7 F 70 18 101/58 L 94 Code Status & VTE Plan VTE Prophylaxis Plan VTE Prophylaxis will be ordered: Yes PG Care Time/CCT Total # of Minutes Spent Total Time Spent with Patient: Total time spent is greater than 50% in coordination of care (as documented) at patient's floor/unit and/or counseling patient: Coding Level of Care Code INT OBSERVATION CARE 50M LVL 2 Diagnoses Syncope R55 Syncope type: unspecified Acute UTI N39.0 Elevated troponin R77.8 (1) Syncope Syncope type: unspecified Qualified Code(s): R55 - Syncope and collapse
[2022-03-04] MEDS ORDERED: DEXTROSE 50% 50 ML SYRINGE IV PRN (04:12)
[2022-03-04] MEDS ORDERED: CARBOHYDRATES FOR HYPOGLYCEMIA PO PRN (04:12)
[2022-03-04] MEDS ORDERED: GLUCAGON FOR INJ 1 MG VIAL SQ PRN (04:12)
[2022-03-04] MEDS ORDERED: GLUCOSE 40% GEL 15 GM TUBE PO PRN (04:12)
[2022-03-04] MEDS ORDERED: GLUCOSE 10 TABS/TUBE PO PRN (04:12)
[2022-03-04] MEDS ORDERED: ALBUTEROL HFA 8 GM INHALER INH PRN (04:59)
[2022-03-04] MEDS ORDERED: traMADol HCL 50 MG TABLET PO PRN (04:59)
[2022-03-04] MEDS ORDERED: ENOXAPARIN INJ 40 MG/0.4 ML SYR SQ SCH (06:00)
--- NOTE | 2022-03-04 07:25 | CT Scan Report ---
CT SCAN OF THE BRAIN WITHOUT IV CONTRAST CLINICAL HISTORY: Dizziness. Syncope. COMPARISON STUDY: CT of the brain dated 05/01/2009. TECHNIQUE: Unenhanced axial CT scan of the brain is performed from the vertex to the skull base. A do se lowering technique was utilized adhering to the principles of ALARA. CT DOSE: 537.48 mGy.cm FINDINGS: Brain parenchyma: There is age-related involutional change noting mild subcortical and periventricula r microangiopathic disease. There is no hemorrhage, mass effect, or evidence of acute territorial isc hemia by CT criteria. Steele-white matter differentiation is preserved. No extra-axial fluid collection is seen. Ventricles, sulci, cisterns: Prominent secondary to involutional change. Intracranial vasculature: There is atherosclerotic calcification of the cavernous carotid arteries. Calvarium: Unremarkable. Sinuses and mastoids: There is evidence of previous paranasal sinus surgery. Moderate to advanced muc osal thickening is noted in the anterior ethmoid sinuses and the frontal sinuses. Trace mucosal thick ening is seen in the sphenoid sinuses. The mastoid air cells are well pneumatized. Orbits: The bony orbits are grossly intact. There are bilateral ocular lens implants. IMPRESSION: There is no hemorrhage, mass effect, or evidence of acute territorial ischemia by CT harris chandra. ACT 112: Negative or not required by law. Electronically signed by: Gregorio Hagan M.D. 03/04/2022 7:23 AM
--- NOTE | 2022-03-04 08:07 | XRay Report ---
SINGLE VIEW CHEST CLINICAL HISTORY: Generalized weakness. FINDINGS: An AP, portable, upright chest radiograph is compared to study dated 09/15/2020 and correlat ed with chest CT dated 12/17/2021. The examination is degraded by portable technique and apical lordot ic positioning. The heart is enlarged. The pulmonary vasculature is noncongested. Chronic interstitia l thickening is similar to previous. There is mild bibasilar scarring/atelectasis. The lungs and pleu ral spaces are otherwise clear. No pneumothorax is seen. The skeletal structures are osteopenic. The bony thorax is grossly intact. A left shoulder arthroplasty is in place. IMPRESSION: Cardiomegaly with no active disease in the chest. ACT 112: Negative or not required by law. Electronically signed by: Gregorio Hagan M.D. 03/04/2022 8:06 AM
[2022-03-04] MEDS ORDERED: METOPROLOL SUCC 50MG EXT REL TAB PO SCH (09:00)
[2022-03-04] MEDS ORDERED: ENALAPRIL MALEATE 10 MG TAB PO SCH (09:00)
[2022-03-04] MEDS ORDERED: GABAPENTIN 600 MG TAB PO SCH (09:00)
[2022-03-04] MEDS ORDERED: PRAMIPEXOLE DIHYDROCHLO 0.5 MG TAB PO SCH (09:00)
--- NOTE | 2022-03-04 12:40 | Hospitalist Progress Note ---
Date of Service March 04, 2022 Assessment & Plan Admission and Anticipated Discharge Date Admission Date: March 04, 2022 Results & Data Results & Data ([facility]) Vital Signs (Past 12 Hours) Vital Signs Temp Pulse Pulse Resp BP Pulse Ox 03/04/22 11:03 37.1 C 91 H 18 118/69 91 03/04/22 07:41 36.5 C 70 18 116/65 94 03/04/22 07:14 65 03/04/22 05:05 36.9 C 65 18 127/68 95 03/04/22 05:04 66 03/04/22 04:10 66 18 121/64 92 03/04/22 02:22 75 18 125/72 95 03/04/22 01:00 75 18 108/65
--- NOTE | 2022-03-04 16:30 | Cardiology Consultation ---
Date of Consultation March 04, 2022 Assessment & Plan (1) Syncope: (2) Elevated troponin: (3) Exertional dyspnea: (4) HTN (hypertension): (5) Tobacco abuse: (6) Nonsustained supraventricular tachycardia: ASSESSMENT/PLAN: 1. Syncope: Etiology uncertain. He had not been feeling well for some time leading up to that with lightheadedness and did not immediately awakened back to baseline despite documented sinus rhythm. Malignant arrhythmia not likely. Recommend outpatient event monitor. Consider carotid duplex. Given recent congestion and concern for UTI on presentation, perhaps he was hypovolemic or hypoglycemic (prior to OJ administration) contributing to this event. Would advise against driving for now. 2. Elevated troponin: High sensitivity troponin elevated but his presentation is not consistent with acute coronary syndrome. He certainly has risk factors for CAD. Given dyspnea with exertion, could consider outpatient noninvasive ischemic evaluation. 3. Dyspnea with exertion: Will consider outpatient noninvasive ischemic evaluation. He appears euvolemic. Cannot exclude pulmonary etiology given chronic smoking history. 4. Hypertension: Blood pressure well controlled. No changes made at this time. 5. Tobacco abuse: Recommended that he stop smoking. 6. Sleep apnea: Recommended that he order picker his CPAP device. 7. Nonsustained SVT: Noted on telemetry, presumably while sleeping at approximately 1:00 a.m.. Discussed diagnosis. No specific treatment necessary. This can be monitored with his upcoming outpatient 30 day event monitor which is being arranged through the cardiology office. 8. UTI: Diagnosed by primary hospitalist service. Defer treatment to them. 9. Disposition: Can be discharged home from a Cardiology perspective but will defer to hospitalist team as he is being evaluated/treated for other issues. Follow-up in the cardiology office in approximately 2 months, after the completion of 30 day event monitor. Plan of care communicated with Dr. Acosta of the primary hospitalist service. Today's visit was 46 minutes in duration, which included [id number] time, counseling patient, coordinating care, reviewing records, chart completion. Thank you for allowing me to participate in the care of your patient. Please call for any other questions or concerns. Sincerely, Anders Steiner M.D. History of Present Illness Reason for Consultation: Syncope and elevated troponins. Requesting Physician: Dinesh Garg Attending Physician: Ramakrishna Acosta, History of Present Illness Mr. Hand is a very pleasant 67-year-old gentleman with history significant for hypertension, dyslipidemia, type 2 diabetes, tobacco abuse, and sleep apnea (has not picked up his CPAP device). He was admitted on 03/03/2022 following a syncopal episode. On 03/03/2022, he was at a fireworks event and fell asleep while there. He admits that he felt lightheaded and when he woke up, he wanted to return home. He drove and states that he was a bit loopy while driving home and admits that he should not have been driving. He states that he was having trouble staying in his le. While sitting at home, he was changing his diabetic device and became pale in appearance. Maureen, his significant other, got him some orange juice. He then lost consciousness after drinking some orange juice. She helped him down to the floor as to avoid injury. She called 911. She states that when EMS arrived, his systolic blood pressure was in the low 90s. He was out for approximately 30 seconds and then appeared to regain some form of consciousness but then was in and out over the next several minutes. When EMS arrived, and after the orange juice, his glucose was approximately 180 per her report. When he was awake, he still had issues with balance and felt as though he was floating in space, stating that his mind remained fuzzy. Upon presentation, his ECG demonstrated sinus rhythm at 74 beats per minute and possible previous inferior infarct. His high sensitivity troponin was elevated at 57 and increased to 113 approximately 8-9 hours later, with next value pending. He feels back to his baseline. He apparently has issues sleeping at home between sleep apnea and restless legs syndrome. CPAP has been prescribed however he did not order picker the device to start using it. He is active and denies shortness of breath however his girlfriend states that he appears short of breath with exertion. He has been limited due to left knee pain and admits that he is not as active as he used to be due to the pain. He has been experiencing congestion over the past few days and has been using Mucinex. He denies chest pain, palpitations, edema, or bleeding. He denies fevers or chills. Review of systems: As above. Review of systems otherwise negative/unremarkable. Family history: No known premature CAD. Father in 2020 at the age of 101. Social history: Has smoked since teenage years. Currently smokes 6 cigarettes per day and at the most has smoked 3-4 packs per week. Occasional alcohol. No drugs. Lives alone. His in March of 2021. His significant other/girlfriend is Maureen [place]. He has 3 children, 2 daughters and 1 son. He has grandchildren and step grandchildren. 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 Maureen was present at the bedside and his [id number] presented to the bedside during our conversation. Allergies Allergy/AdvReac Type Severity Reaction Status Date / Time Penicillins AdvReac Intermediate Hives, Verified 03/04/22 00:42 itching Home Medications Medication Instructions Recorded Confirmed Type ascorbic acid (vitamin C) 1,000 mg 1 gm PO 2XWK tab 03/22/19 03/04/22 History tablet hydroxychloroquine 200 mg tablet 400 mg PO QPM tab 03/22/19 03/04/22 History liraglutide 0.6 mg/0.1 mL (18 mg/3 1.8 mg SUBCUT QAM #81 ml 03/22/19 03/04/22 History mL) subcutaneous pen injector metformin 1,000 mg tablet 1,000 mg PO BID #180 tab 03/22/19 03/04/22 History metformin 500 mg tablet 500 mg PO QPM tab 03/22/19 03/04/22 History multivitamin (Multiple Vitamins) 1 tab PO QAM 03/22/19 03/04/22 History omega-3 fatty acids 1,000 mg 1,000 mg PO QAM cap 03/28/20 03/04/22 History capsule (Fish Oil Concentrate) albuterol sulfate 90 mcg/actuation 2 puff INHALATION QID PRN #8.5 g 12/25/20 03/04/22 Rx aerosol inhaler (Ventolin HFA) insulin aspart U-100 100 unit/mL 1 sliding scale dose SUBCUT 12/26/20 03/04/22 History (3 mL) subcutaneous pen (Novolog DIRECTED Flexpen U-100 Insulin aspart) insulin glargine 100 unit/mL (3 24 unit SUBCUT HS ml 04/17/21 03/04/22 History mL) subcutaneous pen (Lantus Solostar U-100 Insulin) CPAP Machine #1 ea 05/30/21 10/23/21 Rx CPAP Supplies #1 ea 05/30/21 10/23/21 Rx gabapentin 600 mg tablet 600 mg PO BID #180 tab 09/12/21 03/04/22 Rx sildenafil 100 mg tablet See Rx Instructions .ROUTE 10/16/21 03/04/22 Rx .COMPLEX #20 tab metoprolol succinate 50 mg 50 mg PO QAM #90 tab 10/17/21 03/04/22 Rx tablet,extended release 24 hr ramipril 5 mg capsule 5 mg PO QAM #90 cap 10/17/21 03/04/22 Rx solifenacin 10 mg tablet (Vesicare) 10 mg PO DAILY #30 tab 10/23/21 03/04/22 Rx pramipexole 0.5 mg tablet 0.5 mg PO BID #180 tab 12/09/21 03/04/22 Rx lovastatin 40 mg tablet 40 mg PO QPM #90 tab 12/26/21 03/04/22 Rx clonazepam 0.5 mg tablet 0.5 mg PO HS #90 tab 02/06/22 03/04/22 Rx tramadol 50 mg tablet 100 mg PO HS PRN #180 tab 02/06/22 03/04/22 Rx Patient History Medical History (Updated 03/04/22 @ 16:49 by David Steiner MD) Anemia, normocytic normochromic Anxiety [place] esophagus BPH (benign prostatic hyperplasia) Bronchitis HX-LAST FALL-LAST INHALER USE SUMMER 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 persistent despite ACEI d/c. 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, follows with rheumatology Pulmonary nodules monitoring per PCP with plan for CT scan 11/2021 Restless leg syndrome Rheumatoid arthritis Sleep apnea severe sleep apnea-auto CPAP ordered by PCP per PCP 05/30/2021-pt not yet using treatment Type 2 diabetes mellitus Urge incontinence of urine Surgical History Fusion of spine LUMBAR H/O shoulder surgery LEFT H/O sinus surgery H/O umbilical hernia repair (09/05/21) Open Umbilical Hernia Repair - Shane Urena, 09/05/2021 History of cataract surgery RT/LEFT History of colonoscopy History of cystoscopy "COLLAPSED URETHRA" S/P LASIK surgery S/P lumbar laminectomy X 2 [place] teeth removed Family History Mother Ovarian cancer Father Diabetes Other No family history of adverse response to anesthesia Denies family history of Prostate cancer Breast cancer Lung cancer Colorectal cancer Social History Smoking Status: Current every day smoker Tobacco Type: Cigarettes Cigarettes Per Day: 5-6 CIGS A DAY; Second Hand Exposure: No; Hx Alcohol Use: Yes Alcohol type: beer and hard liquor Hx Substance Use: No Preferred Language: Ukrainian Communication Ability: Effective Visual Impairment: Limited Hearing Ability: Normal Earth Moving Technician Required: No Beliefs That Will Affect Care: None marital status: / Current Living Situation: Alone Current Living Situation Comment: has significant other that stays with patient at times current occupational status: retired 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 How many Children do You have: 3 Feels Safe at Home: Yes Childhood Exposure to Second-Hand Smoke: No caffeine: Yes Dental Care, Regularly: Yes Physical Activity Frequency: Daily Seatbelt Use: never Sunscreen Use: Yes Assistive Devices: None Physical Exam Physical Exam: Gen.: No acute distress. Alert and oriented. HEENT: Anicteric sclera. Neck: No appreciable JVD. Normal carotid upstrokes bilaterally. Cardiac: PMI was nonpalpable. No ventricular heave. Regular. Normal S1-S2. No murmur auscultated. No rubs or gallops. Pulmonary: Clear to auscultation bilaterally without wheezes, rales, or rhonchi. Abdomen: Soft, nontender, nondistended, with normoactive bowel sounds. No bruits noted. Extremities: 2+ radial pulses bilaterally. 2+ posterior tibialis pulses bilaterally. No edema or cyanosis. Psychiatric: Affect appears appropriate. Results & Data ([facility]) Vital Signs (Past 12 Hours) Vital Signs Temp Pulse Pulse Resp BP Pulse Ox 03/04/22 15:43 36.7 C 78 20 114/69 100 03/04/22 14:55 57 L 03/04/22 11:03 37.1 C 91 H 18 118/69 91 03/04/22 07:41 36.5 C 70 18 116/65 94 03/04/22 07:14 65 03/04/22 05:05 36.9 C 65 18 127/68 95 03/04/22 05:04 66 Laboratory Results Laboratory Results - last 24 hr 03/03/22 03/04/22 03/04/22 23:36 00:06 00:06 WBC 10.45 RBC 4.75 Hgb 14.3 Hct 42.0 MCV 88.4 MCH 30.1 MCHC 34.0 RDW Std Deviation 43.7 RDW Coeff of Sara 13.5 Plt Count 253 MPV 9.2 Immature Gran % (Auto) 1.8 Neut % (Auto) 73.1 Lymph % (Auto) 13.2 [place] % (Auto) 9.5 Eos % (Auto) 2.2 Baso % (Auto) 0.2 Neut # (Auto) 7.64 H Lymph # (Auto) 1.38 [place] # (Auto) 0.99 H Eos # (Auto) 0.23 Baso # (Auto) 0.02 Immature Gran # (Auto) 0.19 H VBG pH VBG pCO2 VBG pO2 VBG HCO3 VBG O2 Saturation VBG Base Excess Sodium 136 Potassium 4.3 Chloride 103 Carbon Dioxide 24 Anion Gap 9 BUN 29 H Creatinine 1.30 Est Cr Clr Drug Dosing 55.3 Est GFR ( Amer) 64.5 Est GFR (Non-Af Amer) 55.7 BUN/Creatinine Ratio 22.3 H Glucose 250 H POC Glucose 263 H Calcium 9.0 Total Bilirubin 0.4 AST 16 ALT 17 Alkaline Phosphatase 95 Troponin I High Sens 57.0 H* Total Protein 6.2 Albumin 3.6 Globulin 2.6 Albumin/Globulin Ratio 1.4 Urine Color Urine Appearance Urine pH Ur Specific [place] Urine Protein Urine Glucose (UA) Urine Ketones Urine Blood Urine Nitrite Urine Bilirubin Urine Urobilinogen Ur Leukocyte Esterase Urine WBC (Auto) Urine RBC (Auto) U Hyaline Cast (Auto) U Epithel Cells (Auto) Urine Bacteria (Auto) SARS-CoV-2, RNA, NAAT 03/04/22 03/04/22 03/04/22 00:06 00:36 01:56 WBC RBC Hgb Hct MCV MCH MCHC RDW Std Deviation RDW Coeff of Sara Plt Count MPV Immature Gran % (Auto) Neut % (Auto) Lymph % (Auto) [place] % (Auto) Eos % (Auto) Baso % (Auto) Neut # (Auto) Lymph # (Auto) [place] # (Auto) Eos # (Auto) Baso # (Auto) Immature Gran # (Auto) VBG pH 7.34 L VBG pCO2 47 VBG pO2 50 VBG HCO3 25 VBG O2 Saturation 81.4 VBG Base Excess -0.8 Sodium Potassium Chloride Carbon Dioxide Anion Gap BUN Creatinine Est Cr Clr Drug Dosing Est GFR ( Amer) Est GFR (Non-Af Amer) BUN/Creatinine Ratio Glucose POC Glucose Calcium Total Bilirubin AST ALT Alkaline Phosphatase Troponin I High Sens Total Protein Albumin Globulin Albumin/Globulin Ratio Urine Color Yellow Urine Appearance Cloudy A Urine pH 7.0 Ur Specific [place] 1.030 Urine Protein Negative Urine Glucose (UA) 3+ H Urine Ketones Negative Urine Blood Negative Urine Nitrite Positive A Urine Bilirubin Negative Urine Urobilinogen Negative Ur Leukocyte Esterase 2+ H Urine WBC (Auto) >30 H Urine RBC (Auto) 0-4 U Hyaline Cast (Auto) 0 U Epithel Cells (Auto) 10-20 H Urine Bacteria (Auto) 4+ H SARS-CoV-2, RNA, NAAT NEGATIVE 03/04/22 03/04/22 03/04/22 02:20 08:52 15:54 WBC RBC Hgb Hct MCV MCH MCHC RDW Std Deviation RDW Coeff of Sara Plt Count MPV Immature Gran % (Auto) Neut % (Auto) Lymph % (Auto) [place] % (Auto) Eos % (Auto) Baso % (Auto) Neut # (Auto) Lymph # (Auto) [place] # (Auto) Eos # (Auto) Baso # (Auto) Immature Gran # (Auto) VBG pH VBG pCO2 VBG pO2 VBG HCO3 VBG O2 Saturation VBG Base Excess Sodium Potassium Chloride Carbon Dioxide Anion Gap BUN Creatinine Est Cr Clr Drug Dosing Est GFR ( Amer) Est GFR (Non-Af Amer) BUN/Creatinine Ratio Glucose POC Glucose Calcium Total Bilirubin AST ALT Alkaline Phosphatase Troponin I High Sens 84.1 H* D 113.3 H* D 92.0 H* D Total Protein Albumin Globulin Albumin/Globulin Ratio Urine Color Urine Appearance Urine pH Ur Specific [place] Urine Protein Urine Glucose (UA) Urine Ketones Urine Blood Urine Nitrite Urine Bilirubin Urine Urobilinogen Ur Leukocyte Esterase Urine WBC (Auto) Urine RBC (Auto) U Hyaline Cast (Auto) U Epithel Cells (Auto) Urine Bacteria (Auto) SARS-CoV-2, RNA, NAAT 03/04/22 16:12 WBC RBC Hgb Hct MCV MCH MCHC RDW Std Deviation RDW Coeff of Sara Plt Count MPV Immature Gran % (Auto) Neut % (Auto) Lymph % (Auto) [place] % (Auto) Eos % (Auto) Baso % (Auto) Neut # (Auto) Lymph # (Auto) [place] # (Auto) Eos # (Auto) Baso # (Auto) Immature Gran # (Auto) VBG pH VBG pCO2 VBG pO2 VBG HCO3 VBG O2 Saturation VBG Base Excess Sodium Potassium Chloride Carbon Dioxide Anion Gap BUN Creatinine Est Cr Clr Drug Dosing Est GFR ( Amer) Est GFR (Non-Af Amer) BUN/Creatinine Ratio Glucose POC Glucose 338 H* Calcium Total Bilirubin AST ALT Alkaline Phosphatase Troponin I High Sens Total Protein Albumin Globulin Albumin/Globulin Ratio Urine Color Urine Appearance Urine pH Ur Specific [place] Urine Protein Urine Glucose (UA) Urine Ketones Urine Blood Urine Nitrite Urine Bilirubin Urine Urobilinogen Ur Leukocyte Esterase Urine WBC (Auto) Urine RBC (Auto) U Hyaline Cast (Auto) U Epithel Cells (Auto) Urine Bacteria (Auto) SARS-CoV-2, RNA, NAAT Diagnostic Findings Telemetry personally reviewed: Sinus rhythm. Nonsustained SVT times 15 beats at 12:58 a.m. on 03/04/2022. Head CT 03/03/2022: No hemorrhage or mass effect. No acute ischemia per Radiology. Echo 03/04/2022 report reviewed: Normal LV systolic function. EF 60-65%. Normal wall motion. Mild LVH. No significant valvular abnormalities. ECG personally reviewed 03/04/2022 at 1:24 a.m.: Sinus rhythm 72 beats per minute. Inferior infarct. Incomplete RBBB. Medications Administered Current Inpatient Medications Albuterol (Albuterol Hfa 8 Gm Inhaler) 2 puffs INH QID PRN PRN Reason: shortness of breath or wheezin Stop: 04/03/22 04:58 Clonazepam (Clonazepam 0.5 Mg Tab) 0.5 mg PO HS MORGAN Stop: 04/03/22 20:59 Dextrose (Dextrose 50% 50 Ml Syringe) 25 - 50 ml IV UD PRN; Protocol PRN Reason: Hypoglycemia Protocol Stop: 04/03/22 04:11 Enalapril Maleate (Enalapril Maleate 10 Mg Tab) 20 mg PO QAM MORGAN Stop: 04/03/22 08:59 Last Admin: 03/04/22 08:03 Dose: 20 mg Documented by: Enoxaparin Sodium (Enoxaparin Inj 40 Mg/0.4 Ml Syr) 40 mg SQ Q24H MORGAN Stop: 04/03/22 05:59 Last Admin: 03/04/22 05:44 Dose: 40 mg Documented by: Gabapentin (Gabapentin 600 Mg Tab) 600 mg PO BID MORGAN Stop: 04/03/22 08:59 Last Admin: 03/04/22 08:03 Dose: 600 mg Documented by: Glucagon (Glucagon For Inj 1 Mg Vial) 1 mg SQ UD PRN; Protocol PRN Reason: Hypoglycemia Protocol Stop: 04/03/22 04:11 Glucose (Glucose 10 Tabs/Tube) 4 - 8 tabs PO UD PRN; Protocol PRN Reason: Hypoglycemia Protocol Stop: 04/03/22 04:11 Glucose (Glucose 40% Gel 15 Gm Tube) 15 - 30 gm PO UD PRN; Protocol PRN Reason: Hypoglycemia Protocol Stop: 04/03/22 04:11 Hydroxychloroquine Sulfate (Hydroxychloroquine Sulfate 200 Mg Tab) 400 mg PO QPM MORGAN Stop: 04/03/22 20:59 Ceftriaxone Sodium (Rocephin) 2,000 mg in 70 mls @ 100 mls/hr IV Q24H MORGAN Stop: 03/14/22 19:59 Insulin Glargine (Lantus Per Unit Charge) 24 units SQ HS MORGAN Stop: 04/03/22 20:59 Lovastatin (Lovastatin 20 Mg Tab) 40 mg PO QPM MORGAN Stop: 04/03/22 20:59 Metoprolol Succinate (Metoprolol Succ 50mg Ext Rel Tab) 50 mg PO QAM MORGAN Stop: 04/03/22 08:59 Last Admin: 03/04/22 08:03 Dose: 50 mg Documented by: Miscellaneous (Carbohydrates For Hypoglycemia ) 15 - 30 gm PO UD PRN PRN Reason: Hypoglycemia Protocol Stop: 04/03/22 04:11 Miscellaneous (Solifenacin [Vesicare]: Order Awaiting Action) 1 ea N/A QS PENDING SALE TO [facility] Stop: 04/03/22 07:59 Last Admin: 03/04/22 14:39 Dose: Not Given Documented by: Pramipexole Dihydrochloride (Pramipexole Dihydrochlo 0.5 Mg Tab) 0.5 mg PO BID PENDING SALE TO [facility] Stop: 04/03/22 08:59 Last Admin: 03/04/22 08:04 Dose: 0.5 mg Documented by: Tramadol HCl (Tramadol Hcl 50 Mg Tablet) 100 mg PO HS PRN PRN Reason: Pain Stop: 04/03/22 04:58 PG Care Time/CCT Total # of Minutes Spent Total Time Spent with Patient: Total time spent is greater than 50% in coordination of care (as documented) at patient's floor/unit and/or counseling patient: Coding Level of Care Code 64259 Office/Outpt Visit, New Diagnoses Syncope R55 Syncope type: unspecified Elevated troponin R77.8 Exertional dyspnea R06.00 HTN (hypertension) I10 Hypertension type: essential hypertension Tobacco abuse Z72.0 Nonsustained supraventricular tachycardia I47.1 Time Spent (min) 46 (1) Syncope Syncope type: unspecified Qualified Code(s): R55 - Syncope and collapse (2) HTN (hypertension) Hypertension type: essential hypertension Qualified Code(s): I10 - Essential (primary) hypertension
--- NOTE | 2022-03-04 18:08 | Discharge Summary ---
Date of Service March 04, 2022 Admission HPI Per Admitting Provider 67 y/o M Hx BPH, HTN, HLD, DM II, RA. Presents following a syncopal episode. The pt had returned from watching fireworks and felt lightheaded. He assumed that this was due to low glucose, but when checked, his glucose was normal. His girlfriend then noted that he was pale and suggested calling EMS when he lost consciousness for a few minutes. She was able to guide him to the ground so that no trauma was sustained. He has not had any CP, palpitations or SOB. He has had dysuria for a few days. Initial labs were notable for a + UA and an elevated trop of 57. Repeat trop increased to 84. EKG demonstrated nonspecific lateral changes. PMH: 1) HTN 2) HLD 3) IDDM 4) BPH 5) RA Surgical: 1) C2 fracture 2) Lumbar spine 3) L shoulder Social: Smokes 4-5 cigarettes daily. Occasional beer. Family: father age 101 Mother age 53 due to ovarian CA Discharge Data Allergies Allergy/AdvReac Type Severity Reaction Status Date / Time Penicillins AdvReac Intermediate Hives, Verified 03/04/22 00:42 itching Consultations 03/04/22 01:36 ED Decision to Admit Stat 03/04/22 04:12 Consult Cardiology Routine Ordered Studies 03/03/22 23:34 CT head/brain wo con Urgent Discharge Plan Discharge Items Patient Disposition: Home - Self-Care Reason For Visit: RULE OUT MA Discharge Diagnosis: Faintinglikely due to dehydration Condition on Discharge: Good Activity: Per Instructions section Activity Comment: take it easy until after cardiology workup has been completed Non-emergency contact: Primary Care Provider and Be[employer] 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 Expect their office to be calling you later this week to get it set up -As we discussed, your baseline sugar control, as well as drinking habits, definitely leave you chronically dehydratedand definitely is set up for things to acutely worsen particularly with the heat -See below under "uncontrolled type 2 diabetes" as it relates to the sugar, as we discussed with drinkinga lot of the time as we get a bit older the hormones that make us feel thirsty start to wear offto that and you really cannot trust feeling thirsty to decide whether or not you are hydrated. It would be pretty reasonable to target 60 ounces or so a day to maintain "baseline hydration"and then probably add another 5 to 10 ounces per hour if you are working out in the heat. Like we talked about, its not that you cannot have coffee or beer, its just that it would not be reasonable to assume that either of those have led to better hydrationso when you are adding up your goal for 60 ounces, do not count coffee or beer towards that total. It is very helpful to keep track/added up through the day Uncontrolled type 2 diabetes -While acutely the high sugar causing a degree of dehydration was probably part of what led to your faint, more long-term one of the biggest things we worry about with uncontrolled diabetes is that high sugars clog arteries. Generally speaking, the higher we run in the longer run high the more were knocking off blood vessels we cannot get back. As it relates to an A1c value, generally anything above 7.0 becomes more concerning for blocking up blood vessels; if we are talking about a "any given moment" blood sugar readinggenerally as a rule of thumb anything above [id number] starts to be more concerning. -For most type II diabetics, it is an illness that on average is about 80% lifestyle, about 20% genetic. To that end, what that means is that you probably have at least 80% control over the situation with your diabetes. -The biggest culprit and eating will be the simple/starchy/potato/bread/sugary type of carbohydrates. What happens when we eat those kind of foods is it gets absorbed very rapidly, and has a lot of carbohydrate in itthis spikes are blood sugar, leading to a degree of blocked arteries. Her pancreas then has to make a lot of insulin to get that sugar out of our bloodstream and into our muscles, and when we have any genetic predisposition to type 2 diabetes, our muscles get progressively "addicted" to insulinwanting more each time we go through exposure to high sugar/insulinon the whole process worsens. -Fortunately, what that means, is by avoiding/minimizing the simple carbohydrates in your diet, you can probably significantly regress your insulin resistance ("put your diabetes into remission" if everything goes perfectly) -A really helpful way to start to look at your eating habits will be to check your sugar about 2 hours after you are done eating. -As this relates to "high sugars clog arteries" you will be able to see in real-time how the food impacted your metabolism, and like we briane will be able to "grade the work" of your short acting insulin. Is a reasonable rule, you would want to see sugars 2 hours after you eat be between [id number]. If the sugar reading is higher, as it relates to your mealtime insulin, you will know that the next time you eat that food or something similar, you would want to take more short acting insulin. -As this relates to insulin resistance ("insulin addiction") in general, you will know that foods that spike her sugar higher/foods that take more insulin to process, are foods that are making your metabolism sicker/making you "more diabetic" -To that end, you will really learn to helpful things by checking sugar readings after you eat1 is making sure that you are doing your best to "not clog arteries" in the moment by matching how many carbohydrates you ate with enough insulin to get your sugar in that [id number] range 2 hours later. The other is learning what foods really are making you sick or overall so that you can start to minimize/avoid/review them as a treat -There will be a learning curve to this, but if you are checking 2 hours after you eat pretty much every time you eat, thinking about what you have eaten/how much carbohydrates are probably in it/how much insulin you took/analyzing sugar readings laterand writing everything down slowly have a good frame of reference to compare to, I would bet that within 1-2 months you will probably be able to have most of your sugars at goal. -You will mostly be adjusting the dose of your NovoLog (mealtime insulin), but you want to keep an eye on how much insulin you are on altogether. While it does not have to be perfect, as a general rule, we like to see about 50% of your total insulin on the day be your long-acting (Lantus/glargine), and about 50% be the short acting (aspart/NovoLog) added up across all your meals on the day. The main reason to pay attention to this is simply that if things really start to get out of balance, it might be that your doctors have to help you adjust your Lantus dose, or adjust your "Centerpoint" or frame of reference from which you start to decide how much NovoLog to use at a meal. -As you start to eat less of the simple/starchy/sugary carbohydrates, you may also start to see your overall sugars come down, sometimes fairly quickly. That, as well as seeing that you need less insulin for what may be took more insulin in the past, will be ways that you start to see that your diabetes/insulin resistance is starting to regress. That will be when you start talking with Dr. Beltran about maybe being able to reduce some of your medicines. -After cardiology has finished your work-up/after we know where you stand as it relates to possible coronary disease, then we will also want you to start to add 30 minutes of light cardiovascular exercise every day. This can be something as simple as a brisk walk/pedaling a bikethe "trick" is basically that when you get your heart rate up for 20-30 minutes nonstop (emphasis on nonstop) you tend to have about the same impact on your metabolism and insulin resistance as a dose of metformin. Unlike the metformin, which wears off after you take it, exercise day in and day out will start to fundamentally rewrite your metabolism. Ideally this would be every day of your life, but as we discussed, give yourself Criss to not be perfectbut just try to target doing something every day if at all possible. Again, we will need to hold off on starting this until after the cardiology work-up has been completed. Elevated troponin -As we discussed, troponin is a lab test that is very sensitive to coming from the heart muscle. While your levels and your overall picture was not at all consistent with a heart attack, our concern is that a fainting spell causing any elevation of troponin may signify that he have a degree of underlying coronary artery disease/coronary artery blockages. Cardiology is going to work this up furtherfirst with the transportation job titles to make sure there were not any odd rhythms going on, and then likely with a stress test in the very near future as well. Between now and then, we will want you to assume that you may have some degree of coronary diseaseto that and we will have you take an 81 mg aspirin (if the stress test is reassuring, then you can talk with cardiology and Dr. Beltran about stopping it), and we will want you to pay attentionif you get any undue/new/worse degree of shortness of breath when you are doing anything, stop and rest/take it seriously/come in for an evaluation if it does not get better very quickly. Sleep apnea -Untreated sleep apnea has a lot of "fallout" and to that end we definitely want to have you pickle sorter the CPAP, and get used to it/start using it -When people have sleep apnea, frequently through the night we will stop breathing. When that happens, our brains detect a drop in oxygen/rising carbon dioxide levelsthis tends to wake us up. It is usually not awake enough to be alert, but it is enough to interrupt sleepand often interrupt the deep sleep where we secrete hormones that help us heal/be refreshed. -As we discussed, I have seen sleep studies where people wake up more than 80 times an hour, and its not rare for people to wake up 20 or more times, often m ore than enough to really make a mess of getting any kind of rest. This tends to lead to a lot of daytime sleepiness, fatigue, loss of energy, etc.and treating it (once to get used to the CPAP) can do a beautiful job of helping people feel better surprisingly quick -Longer-term, sucking and against a closed airway creates a big vacuum in her chest, and as we discussed that pulling on her heart and blood vessels in her lungs is a surprisingly common cause for atrial rhythm issues, high blood pressure in her lungs, and occasionally even congestive heart failure -Like we talked about, CPAP tends to be the most effective (and for a lot of people truly the only effective) way to treat sleep apnea. I have rarely, if ever, met a patient who could not tolerate CPAP if they told themselves they had to, and gave it a fair trial to get used to. You may notice that you are not sleeping quite as well for the first month or so as you get used to itremember what we talked about: Right now you are probably not really sleeping at all its just that you are not consciously aware of how poor your sleep is. While you get used to the CPAP, because it is a little bit different it may keep you awake and alert a little bit more, and so you will simply notice the change in your sleep. Once you get used to it, though most people are surprised at how much better they feel/how bad they were feeling that they were not aware of. Urinary tract infection -Is an incidental finding, it does look like your urinary symptoms were probably at least due in part to a urinary tract infection (probably also in part due to high sugar spilling out into your urine), we started an IV antibiotic while you are hereand we will finish out with a course of a very similar oral antibiotic. High cholesterol -Something that we did not talk about, and more of a housekeeping measure than anything, if your stress test is positive/if it becomes clear that you do have coronary artery disease that we need to manage, while your cholesterol levels actually were quite good back in December, people tend to do better with atorvastatin or rosuvastatin than lovastatin. This is not a change we need to make right now, but because there are a lot of "moving parts" in your care, I just wanted to make sure this does not slip through the cracks if the need arises Pending Studies at Discharge: Yes Studies:: urine culture Stand-Alone Forms: [facility], Smoking Cessation Medications and DC Order Prescriptions: New aspirin 81 mg capsule 81 mg PO DAILY Qty: 30 RF: 0 cefdinir 300 mg capsule 300 mg PO BID 6 Days Qty: 12 RF: 0 Continued gabapentin 600 mg tablet 600 mg PO BID Qty: 180 RF: 1 sildenafil 100 mg tablet See Rx Instructions .ROUTE .COMPLEX Qty: 20 RF: 11 metoprolol succinate 50 mg tablet extended release 24 hr 50 mg PO QAM Qty: 90 RF: 3 ramipril 5 mg capsule 5 mg PO QAM Qty: 90 RF: 3 pramipexole 0.5 mg tablet 0.5 mg PO BID Qty: 180 RF: 1 lovastatin 40 mg tablet 40 mg PO QPM Qty: 90 RF: 3 tramadol 50 mg tablet 100 mg PO HS PRN (Reason: Pain) Qty: 180 RF: 0 clonazepam 0.5 mg tablet 0.5 mg PO HS Qty: 90 RF: 0 solifenacin [Vesicare] 10 mg tablet 10 mg PO DAILY Qty: 30 RF: 11 (DME) CPAP Machine Misc See Rx Instructions .Route Qty: 1 RF: 0 (DME) CPAP Supplies Misc See Rx Instructions .Route Qty: 1 RF: 0 metformin 500 mg tablet 500 mg PO QPM RF: 0 metformin 1,000 mg tablet 1,000 mg PO BID Qty: 180 RF: 0 multivitamin [Multiple Vitamins] tablet 1 tab PO QAM RF: 0 hydroxychloroquine 200 mg tablet 400 mg PO QPM RF: 0 liraglutide 0.6 mg/0.1 mL (18 mg/3 mL) pen injector 1.8 mg subcut QAM Qty: 81 RF: 0 ascorbic acid (vitamin C) 1,000 mg tablet 1 gm PO 2XWK RF: 0 omega-3 fatty acids [Fish Oil Concentrate] 1,000 mg capsule 1,000 mg PO QAM RF: 0 albuterol sulfate [Ventolin HFA] 90 mcg/actuation HFA aerosol inhaler 2 puff inhalation QID PRN (Reason: shortness of breath or wheezing) Qty: 8.5 RF: 3 insulin aspart U-100 [Novolog Flexpen U-100 Insulin] 100 unit/mL (3 mL) Insulin Pen 1 sliding scale dose SUBCUT DIRECTED RF: 0 Lantus Solostar U-100 Insulin 100 unit/mL (3 mL) insulin pen 24 unit SUBCUT HS RF: 0 Discharge Orders: Discharge Order (Routine); Ordered 03/04/22 Ordered By: Ramakrishna Acosta Admission Data Admit Date/Time: 03/04/22 03:41 Attending Provider: Ramakrishna Acosta Admit Provider: Dinesh Garg Primary Care Provider: Brandon Beltran Other Providers: Dinesh Garg ; David Steiner
--- NOTE | 2022-03-04 18:11 | Discharge Summary ---
Date of Service March 04, 2022 Admission HPI Per Admitting Provider 67 y/o M Hx BPH, HTN, HLD, DM II, RA. Presents following a syncopal episode. The pt had returned from watching fireworks and felt lightheaded. He assumed that this was due to low glucose, but when checked, his glucose was normal. His girlfriend then noted that he was pale and suggested calling EMS when he lost consciousness for a few minutes. She was able to guide him to the ground so that no trauma was sustained. He has not had any CP, palpitations or SOB. He has had dysuria for a few days. Initial labs were notable for a + UA and an elevated trop of 57. Repeat trop increased to 84. EKG demonstrated nonspecific lateral changes. PMH: 1) HTN 2) HLD 3) IDDM 4) BPH 5) RA Surgical: 1) C2 fracture 2) Lumbar spine 3) L shoulder Social: Smokes 4-5 cigarettes daily. Occasional beer. Family: father age 101 Mother age 53 due to ovarian CA Principal Diagnosis Syncope (see below) Discharge Exam In general he is awake and alert pleasant no distress. HEENT normocephalic atraumatic mucous membranes moist. Breathing unlabored no accessory muscle use good effort. Skin shows no rashes no pallor or icterus. Neuro without focal deficits. Mental status intact. Discharge Data Allergies Allergy/AdvReac Type Severity Reaction Status Date / Time Penicillins AdvReac Intermediate Hives, Verified 03/04/22 00:42 itching Consultations 03/04/22 01:36 ED Decision to Admit Stat 03/04/22 04:12 Consult Cardiology Routine Ordered Studies 03/03/22 23:34 CT head/brain wo con Urgent Hospital Course (1) Syncope: See discharge instructionsfor detail on conversation with patient/etc. 1) Syncope -almost certainly dehydration, however, with elevated troponin he was put on cardiac monitoringapparently had a brief run of self terminating SVT through the night, echo was very reassuring. Cardiology to set him up for a 30- day event monitor and then an outpatient stress test. Discussed hydration and sugar control. Safe for home. 2) Elevated trop -symptoms not consistent with CAD/ACS. That said, high risk for coronary disease. My concern (corroborated by cardiology) is that he had essentially a watershed type demand event from the transient hypotension during his syncopal episode leading to the elevation of troponin. Safe/stable for home, outpatient coronary work-up. Aspirin in the meantime. 3) UTI -had symptoms, UA positive. Culture pendingwas on ceftriaxonesent home on cefdinir 4) DM -uncontrolledextensive education. See discharge instructions 5) HTN, HLD - cont statin, metoprolol, ramipril. 6) RA - cont hydroxychloroquine Full code - Lovenox prophylaxis Stable for home probably 90 minutes spent on his care today. Total Time Total Time Spent Total Time Spent (In Minutes): >30 Discharge Plan Discharge Items Patient Disposition: Home - Self-Care Reason For Visit: RULE OUT IA Discharge Diagnosis: Faintinglikely due to dehydration Condition on Discharge: Good Activity: Per Instructions section Activity Comment: take it easy until after cardiology workup has been completed Non-emergency contact: Primary Care Provider and Technical Specialist Cytology Call non-emergency contact if: you have any medication questions and your symptoms worsen Follow-up/Referrals: Brandon Beltran MD [Primary Care Provider] - Diet: Carb Consistent or DM2 Addtl Attending Provider Instructions: Fainting -The most likely cause of the events that led to your fainting spell was dehydration worsened by the heat leading to a temporary drop in blood pressure that led to your faint -It is far less likely, but possible, that you had a cardiac rhythm problem cause you to faintwhich is why cardiology is getting you set up with a heart monitor for home. Expect their office to be calling you later this week to get it set up -As we discussed, your baseline sugar control, as well as drinking habits, definitely leave you chronically dehydratedand definitely is set up for things to acutely worsen particularly with the heat -See below under "uncontrolled type 2 diabetes" as it relates to the sugar, as we discussed with drinkinga lot of the time as we get a bit older the hormones that make us feel thirsty start to wear offto that and you really cannot trust feeling thirsty to decide whether or not you are hydrated. It would be pretty reasonable to target 60 ounces or so a day to maintain "baseline hydration"and then probably add another 5 to 10 ounces per hour if you are working out in the heat. Like we talked about, its not that you cannot have coffee or beer, its just that it would not be reasonable to assume that either of those have led to better hydrationso when you are adding up your goal for 60 ounces, do not count coffee or beer towards that total. It is very helpful to keep track/added up through the day Uncontrolled type 2 diabetes -While acutely the high sugar causing a degree of dehydration was probably part of what led to your faint, more long-term one of the biggest things we worry about with uncontrolled diabetes is that high sugars clog arteries. Generally speaking, the higher we run in the longer run high the more were knocking off blood vessels we cannot get back. As it relates to an A1c value, generally anything above 7.0 becomes more concerning for blocking up blood vessels; if we are talking about a "any given moment" blood sugar readinggenerally as a rule of thumb anything above [id number] starts to be more concerning. -For most type II diabetics, it is an illness that on average is about 80% lifestyle, about 20% genetic. To that end, what that means is that you probably have at least 80% control over the situation with your diabetes. -The biggest culprit and eating will be the simple/starchy/potato/bread/sugary type of carbohydrates. What happens when we eat those kind of foods is it gets absorbed very rapidly, and has a lot of carbohydrate in itthis spikes are blood sugar, leading to a degree of blocked arteries. Her pancreas then has to make a lot of insulin to get that sugar out of our bloodstream and into our muscles, and when we have any genetic predisposition to type 2 diabetes, our muscles get progressively "addicted" to insulinwanting more each time we go through exposure to high sugar/insulinon the whole process worsens. -Fortunately, what that means, is by avoiding/minimizing the simple carbohydrates in your diet, you can probably significantly regress your insulin resistance ("put your diabetes into remission" if everything goes perfectly) -A really helpful way to start to look at your eating habits will be to check your sugar about 2 hours after you are done eating. -As this relates to "high sugars clog arteries" you will be able to see in real-time how the food impacted your metabolism, and like we discussedshe will be able to "grade the work" of your short acting insulin. Is a reasonable rule, you would want to see sugars 2 hours after you eat be between [id number]. If the sugar reading is higher, as it relates to your mealtime insulin, you will know that the next time you eat that food or something similar, you would want to take more short acting insulin. -As this relates to insulin resistance ("insulin addiction") in general, you will know that foods that spike her sugar higher/foods that take more insulin to process, are foods that are making your metabolism sicker/making you "more diabetic" -To that end, you will really learn to helpful things by checking sugar readings after you eat1 is making sure that you are doing your best to "not clog arteries" in the moment by matching how many carbohydrates you ate with enough insulin to get your sugar in that [id number] range 2 hours later. The other is learning what foods really are making you sick or overall so that you can start to minimize/avoid/review them as a treat -There will be a learning curve to this, but if you are checking 2 hours after you eat pretty much every time you eat, thinking about what you have eaten/how much carbohydrates are probably in it/how much insulin you took/analyzing sugar readings laterand writing everything down slowly have a good frame of reference to compare to, I would bet that within 1-2 months you will probably be able to have most of your sugars at goal. -You will mostly be adjusting the dose of your NovoLog (mealtime insulin), but you want to keep an eye on how much insulin you are on altogether. While it does not have to be perfect, as a general rule, we like to see about 50% of your total insulin on the day be your long-acting (Lantus/glargine), and about 50% be the short acting (aspart/NovoLog) added up across all your meals on the day. The main reason to pay attention to this is simply that if things really start to get out of balance, it might be that your doctors have to help you adjust your Lantus dose, or adjust your "Centerpoint" or frame of reference from which you start to decide how much NovoLog to use at a meal. -As you start to eat less of the simple/starchy/sugary carbohydrates, you may also start to see your overall sugars come down, sometimes fairly quickly. That, as well as seeing that you need less insulin for what may be took more insulin in the past, will be ways that you start to see that your diabetes/insulin resistance is starting to regress. That will be when you start talking with Dr. Beltran about maybe being able to reduce some of your medicines. -After cardiology has finished your work-up/after we know where you stand as it relates to possible coronary disease, then we will also want you to start to add 30 minutes of light cardiovascular exercise every day. This can be something as simple as a brisk walk/pedaling a bikethe "trick" is basically that when you get your heart rate up for 20-30 minutes nonstop (emphasis on nonstop) you tend to have about the same impact on your metabolism and insulin resistance as a dose of metformin. Unlike the metformin, which wears off after you take it, exercise day in and day out will start to fundamentally rewrite your metabolism. Ideally this would be every day of your life, but as we discussed, give yourself Criss to not be perfectbut just try to target doing something every day if at all possible. Again, we will need to hold off on starting this until after the cardiology work-up has been completed. Elevated troponin -As we discussed, troponin is a lab test that is very sensitive to coming from the heart muscle. While your levels and your overall picture was not at all consistent with a heart attack, our concern is that a fainting spell causing any elevation of troponin may signify that he have a degree of underlying coronary artery disease/coronary artery blockages. Cardiology is going to work this up furtherfirst with the threat monitoring analyst to make sure there were not any odd rhythms going on, and then likely with a stress test in the very near future as well. Between now and then, we will want you to assume that you may have some degree of coronary diseaseto that and we will have you take an 81 mg aspirin (if the stress test is reassuring, then you can talk with cardiology and Dr. Beltran about stopping it), and we will want you to pay attentionif you get any undue/new/worse degree of shortness of breath when you are doing anything, stop and rest/take it seriously/come in for an evaluation if it does not get better very quickly. Sleep apnea -Untreated sleep apnea has a lot of "fallout" and to that end we definitely want to have you berry picker the CPAP, and get used to it/start using it -When people have sleep apnea, frequently through the night we will stop breathing. When that happens, our brains detect a drop in oxygen/rising carbon dioxide levelsthis tends to wake us up. It is usually not awake enough to be alert, but it is enough to interrupt sleepand often interrupt the deep sleep where we secrete hormones that help us heal/be refreshed. -As we discussed, I have seen sleep studies where people wake up more than 80 times an hour, and its not rare for people to wake up 20 or more times, often more than enough to really make a mess of getting any kind of rest. This tends to lead to a lot of daytime sleepiness, fatigue, loss of energy, etc.and treating it (once to get used to the CPAP) can do a beautiful job of helping people feel better surprisingly quick -Longer-term, sucking and against a closed airway creates a big vacuum in her chest, and as we discussed that pulling on her heart and blood vessels in her lungs is a surprisingly common cause for atrial rhythm issues, high blood pressure in her lungs, and occasionally even congestive heart failure -Like we talked about, CPAP tends to be the most effective (and for a lot of people truly the only effective) way to treat sleep apnea. I have rarely, if ever, met a patient who could not tolerate CPAP if they told themselves they had to, and gave it a fair trial to get used to. You may notice that you are not sleeping quite as well for the first month or so as you get used to itremember what we talked about: Right now you are probably not really sleeping at all its just that you are not consciously aware of how poor your sleep is. While you get used to the CPAP, because it is a little bit different it may keep you awake and alert a little bit more, and so you will simply notice the change in your sleep. Once you get used to it, though most people are surprised at how much better they feel/how bad they were feeling that they were not aware of. Urinary tract infection -Is an incidental finding, it does look like your urinary symptoms were probably at least due in part to a urinary tract infection (probably also in part due to high sugar spilling out into your urine), we started an IV antibiotic while you are hereand we will finish out with a course of a very similar oral antibiotic. High cholesterol -Something that we did not talk about, and more of a housekeeping measure than anything, if your stress test is positive/if it becomes clear that you do have coronary artery disease that we need to manage, while your cholesterol levels actually were quite good back in December, people tend to do better with atorvastatin or rosuvastatin than lovastatin. This is not a change we need to make right now, but because there are a lot of "moving parts" in your care, I just wanted to make sure this does not slip through the cracks if the need arises Pending Studies at Discharge: Yes Studies:: urine culture Stand-Alone Forms: My [facility], Smoking Cessation Medications and DC Order Prescriptions: New aspirin 81 mg capsule 81 mg PO DAILY Qty: 30 RF: 0 cefdinir 300 mg capsule 300 mg PO BID 6 Days Qty: 12 RF: 0 Continued gabapentin 600 mg tablet 600 mg PO BID Qty: 180 RF: 1 sildenafil 100 mg tablet See Rx Instructions .ROUTE .COMPLEX Qty: 20 RF: 11 metoprolol succinate 50 mg tablet extended release 24 hr 50 mg PO QAM Qty: 90 RF: 3 ramipril 5 mg capsule 5 mg PO QAM Qty: 90 RF: 3 pramipexole 0.5 mg tablet 0.5 mg PO BID Qty: 180 RF: 1 lovastatin 40 mg tablet 40 mg PO QPM Qty: 90 RF: 3 tramadol 50 mg tablet 100 mg PO HS PRN (Reason: Pain) Qty: 180 RF: 0 clonazepam 0.5 mg tablet 0.5 mg PO HS Qty: 90 RF: 0 solifenacin [Vesicare] 10 mg tablet 10 mg PO DAILY Qty: 30 RF: 11 (DME) CPAP Machine Misc See Rx Instructions .Route Qty: 1 RF: 0 (DME) CPAP Supplies Misc See Rx Instructions .Route Qty: 1 RF: 0 metformin 500 mg tablet 500 mg PO QPM RF: 0 metformin 1,000 mg tablet 1,000 mg PO BID Qty: 180 RF: 0 multivitamin [Multiple Vitamins] tablet 1 tab PO QAM RF: 0 hydroxychloroquine 200 mg tablet 400 mg PO QPM RF: 0 liraglutide 0.6 mg/0.1 mL (18 mg/3 mL) pen injector 1.8 mg subcut QAM Qty: 81 RF: 0 ascorbic acid (vitamin C) 1,000 mg tablet 1 gm PO 2XWK RF: 0 omega-3 fatty acids [Fish Oil Concentrate] 1,000 mg capsule 1,000 mg PO QAM RF: 0 albuterol sulfate [Ventolin HFA] 90 mcg/actuation HFA aerosol inhaler 2 puff inhalation QID PRN (Reason: shortness of breath or wheezing) Qty: 8.5 RF: 3 insulin aspart U-100 [Novolog Flexpen U-100 Insulin] 100 unit/mL (3 mL) Insulin Pen 1 sliding scale dose SUBCUT DIRECTED RF: 0 Lantus Solostar U-100 Insulin 100 unit/mL (3 mL) insulin pen 24 unit SUBCUT HS RF: 0 Discharge Orders: Discharge Order (Routine); Ordered 03/04/22 Ordered By: Ramakrishna Acosta Admission Data Admit Date/Time: 03/04/22 03:41 Attending Provider: Ramakrishna Acosta Admit Provider: Dinesh Garg Primary Care Provider: Brandon Beltran Other Providers: Dinesh Garg ; David Steiner Coding Level of Care Code 50241 OBS Care - Discharge Diagnoses Syncope R55 Syncope type: unspecified
[2022-03-04] MEDS ORDERED: cefTRIAXone SODIUM 2,000 MG/70 ML BAG IV SCH (20:00)
[2022-03-04] MEDS ORDERED: INSULIN ASPART PER UNIT SC SCH (21:00)
[2022-03-04] MEDS ORDERED: clonazePAM 0.5 MG TAB PO SCH (21:00)
[2022-03-04] MEDS ORDERED: NON-FORMULARY MEDICATION (Cpap Machine misc) SCH (21:00)
[2022-03-04] MEDS ORDERED: LANTUS PER UNIT CHARGE SQ SCH (21:00)
[2022-03-04] MEDS ORDERED: LOVASTATIN 20 MG TAB PO SCH (21:00)
[2022-03-04] MEDS ORDERED: HYDROXYCHLOROQUINE SULFATE 200 MG TAB PO SCH (21:00)
--- NOTE | 2022-03-05 06:18 | Electrocardiogram Report ---
Test Reason : Blood Pressure : / mmHG Vent. Rate : 074 BPM Atrial Rate : 074 BPM P-R Int : 186 ms QRS Dur : 088 ms QT Int : 370 ms P-R-T Axes : 043 -52 021 degrees QTc Int : 410 ms Normal sinus rhythm Left axis deviation Inferior infarct (cited on or before 02-JUL-2005) Cannot rule out Anterior infarct (cited on or before 15-SEP-2020) Abnormal ECG When compared with ECG of 15-SEP-2020 16:10, No significant change was found Confirmed by David Steiner ([id number]) on 03/05/2022 6:17:45 AM Referred By: REFERRED SELF Confirmed By:David Steiner
--- NOTE | 2022-03-05 06:22 | Electrocardiogram Report ---
Test Reason : Blood Pressure : / mmHG Vent. Rate : 072 BPM Atrial Rate : 072 BPM P-R Int : 178 ms QRS Dur : 094 ms QT Int : 380 ms P-R-T Axes : 054 -61 035 degrees QTc Int : 416 ms Normal sinus rhythm Left axis deviation Low voltage QRS Incomplete right bundle branch block Inferior infarct (cited on or before 02-JUL-2005) Cannot rule out Anterior infarct (cited on or before 15-SEP-2020) Abnormal ECG When compared with ECG of 03-MAR-2022 23:40, No significant change was found Confirmed by David Steiner ([id number]) on 03/05/2022 6:21:37 AM Referred By: REFERRED SELF Confirmed By:David Steiner
== END 2022-03-04 18:41 | disposition home or self-care (01) ==
LOC: ED 23:28 → 2N 23:28 → SUATTDRO 03-04 03:41 → 2N 03-04 04:12

== ENCOUNTER 2023-02-12 06:49 | Observation (INO) ==
--- NOTE | 2023-02-09 08:58 | Anesthesiology Consultation ---
Date of Service February 09, 2023 Assessment & Plan (1) Encounter for pre-operative examination: Chart Review Chart Review: Acceptable Risk for Surgery (pending DOS labs ) and Patient NOT seen in Pre Admission Testing - CBC with diff and PRP ordered for DOS (not done preoperatively) - Check BSG AM DOS -COVID screening: Per PAT nursing assessment on 02/04/23. Pt traveled by car to [place] to visit family- returned 01/09/23. No known COVID-19 positive contacts or current COVID-19 related symptoms. Travel screen negative. Patient vaccinated for Covid. At surgeon discretion if preop Covid testing being done. Open umbilical hernia repair 09/05/21= Done under GA with Grade 2 view with MAC #3. ETT #7.5. History Surgery Operation Date: 02/12/23 08:50 Proposed Procedures p Left Superficial Parotidectomy - Jhonatan Miner MD Height/Weight Height: 5 ft 4 in Weight: 77.111 kg Allergies Allergy/AdvReac Type Severity Reaction Status Date / Time Penicillins Allergy Intermediate Hives, Verified 02/04/23 09:11 itching Medications Home Medications Medication Instructions Recorded Confirmed Last Taken ascorbic acid (vitamin C) 1,000 mg 1 gm PO Q3D 03/22/19 02/04/23 12/21/22 tablet hydroxychloroquine 200 mg tablet 400 mg PO QPM 03/22/19 02/04/23 12/20/22 liraglutide 0.6 mg/0.1 mL (18 mg/3 1.8 mg subcut QAM #81 mL 03/22/19 02/04/23 12/22/22 mL) subcutaneous pen injector metformin 1,000 mg tablet 1,000 - 1,500 mg PO UD #180 tabs 03/22/19 02/04/23 12/22/22 multivitamin (Multiple Vitamins 1 tab PO QAM 03/22/19 02/04/23 12/20/22 tablet) omega-3 fatty acids 1,000 mg 2,000 mg PO QAM 03/28/20 02/04/23 12/20/22 capsule (Fish Oil Concentrate) albuterol sulfate 90 mcg/actuation 2 puff inhalation QID PRN 12/25/20 02/04/23 09/05/21 05:00 aerosol inhaler (Ventolin HFA) shortness of breath or wheezing #8.5 grams insulin aspart U-100 100 unit/mL 1 sliding scale dose subcut 12/26/20 02/04/23 12/23/22 07:30 (3 mL) subcutaneous pen (Novolog DIRECTED FlexPen U-100 Insulin aspart) insulin glargine 100 unit/mL (3 24 unit subcut HS 04/17/21 02/04/23 12/23/22 07:30 mL) subcutaneous pen (Lantus Solostar U-100 Insulin) metoprolol succinate 50 mg 50 mg PO QAM #90 tabs 10/17/21 02/04/23 12/22/22 tablet,extended release 24 hr lovastatin 40 mg tablet 40 mg PO QPM #90 tabs 12/26/21 02/04/23 12/22/22 empagliflozin 10 mg tablet 10 mg PO QAM 03/05/22 02/04/23 12/20/22 (Jardiance) Auto Titrating CPAP #1 ea 03/20/22 01/14/23 Unknown aspirin 81 mg capsule 81 mg PO DAILY PRN ARTHRITIS PAIN 08/13/22 02/04/23 12/20/22 pramipexole 0.5 mg tablet 0.5 mg PO BID #180 tabs 09/25/22 02/04/23 12/22/22 buspirone 5 mg tablet 5 mg PO DAILY PRN Anxiety 12/15/22 02/04/23 12/20/22 ferrous sulfate 325 mg (65 mg 325 mg PO QPM 12/15/22 02/04/23 12/20/22 iron) tablet (Feosol) tramadol 50 mg tablet 100 mg PO HS PRN Pain #180 tabs 12/30/22 02/04/23 Unknown tamsulosin 0.4 mg capsule (Flomax) 0.4 mg PO QPM #30 caps 01/14/23 02/04/23 Unknown ramipril 5 mg capsule 5 mg PO QAM #90 caps 02/03/23 02/04/23 Unknown clonazepam 0.5 mg tablet 0.5 mg PO HS 02/04/23 02/04/23 Unknown gabapentin 600 mg tablet 600 mg PO BID PRN Pain 02/04/23 02/04/23 Unknown omeprazole 40 mg capsule,delayed 40 mg PO QPM PRN acid reflux 02/04/23 02/04/23 Unknown release Past Medical History Medical History Anemia, normocytic normochromic Anxiety [place] esophagus BPH (benign prostatic hyperplasia) Bronchitis Hx- environmental allergies and pollen dust aggravates Chronic back pain Chronic obstructive pulmonary disease inh prn Degenerative disc disease Depression GERD (gastroesophageal reflux disease) HTN (hypertension) Hyperlipidemia Lumbar stenosis 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, follows with rheumatology Pulmonary nodules monitoring per PCP with plan for CT scan within last couple months Restless leg syndrome Rheumatoid arthritis Sleep apnea severe sleep apnea-auto CPAP>does not use Type 2 diabetes mellitus Urge incontinence of urine Past Family History Family History Mother Ovarian cancer Father Diabetes Other Environmental allergies No family history of adverse response to anesthesia No family history of bleeding disorder Denies family history of Prostate cancer Breast cancer Lung cancer Colorectal cancer Past Surgical History Surgical History Fusion of spine LUMBAR H/O shoulder surgery LEFT H/O sinus surgery H/O umbilical hernia repair (09/05/21) Open Umbilical Hernia Repair - Shane Urena, DO 09/05/2021 History of cataract surgery RT/LEFT History of colonoscopy History of cystoscopy "COLLAPSED URETHRA" History of esophagogastroduodenoscopy (EGD) S/P LASIK surgery S/P lumbar laminectomy X 2 [place] teeth removed Social History Smoking Status: Current every day smoker tobacco type: cigarettes Smoking cigarettes per day: 5-10 Do You Dip or Chew Tobacco: No Hx Alcohol Use: Yes Alcohol type: beer and wine alcohol intake frequency: holidays/special occasions only Hx Substance Use: No substance use type: does not use Lab Results Anesthesia Preop Results Results Anesthesia Widget: POC Glucose 87 mg/dl (70-99) 12/23/22 Testing Electrocardiogram Date: 03/04/22 NSR at 72 bpm Left axis deviation. Low voltage QRS Incomplete RBBB Inferior infarct (cited on or before July 02, 2025) Cannot rule out anterior infarct (cited on or before September 15, 2020) Echocardiogram Date: 03/04/22 EF: 60-65% LV Function: normal RWMA: + none Other Findings: + LVH (mild/concentric ) and + diastolic dysfunction (Grade I DD) Valvular Disease: + no significant valvular disease Stress Test Date: 11/07/20 Type: exercise (ECHO) Resting EF: 60% Negative exercise stress ECHO and EKG for ischemia at 86% MPHR. 7 METS achieved Normal BP response with exercise Other Testing Chest CT 11/20/22= No significant change compared to the prior study. Stable subcentimeter pulmonary nodules. These are likely benign given the long-term stability. No new pulmonary nodules identified. Pulmonary arterial hypertension again noted. Mild thickening of the distal esophagus has improved in the interval. Event monitor 04/07/23= NSR. No arrythmia. No reported symptoms
[~2023-02-12 06:49] MED LIST changes: -ASCO500T3 PO; -CALC600T9 PO; -HYDR200T5 PO; -INSDGIPEN SC; -KLN5X PO; -LIRA18IN INJ; -LOVA40TA4 PO; +LR 15ML/HR IV SCH; -METF-384 PO; -MIRA1TAB3 PO; -MRP5 PO; -MULT-506 PO; -NRN600 PO; -OMEG10007 PO; -RAMI5CAP PO; -TPRSR/50 PO; -TRIA0.5C4 TOP; -ULT50 PO
[2023-02-12 07:38] LABS: Basophils # (auto) 0.05 K/uL (0-0.2); Basophils % (auto) 0.6 %; Eosinophils # (auto) 0.32 K/uL (0-0.50); Eosinophils % (auto) 3.6 %; Hematocrit (blood only) 47.5 % (42.0-52.0); Hemoglobin 16.5 g/dl (14.0-18.0); Immature Granulocytes # (auto) 0.05 K/uL (0.01-0.20); Immature Granulocytes % (auto) 0.6 %; Lymphocytes # (auto) 1.47 K/uL (1.2-3.4); Lymphocytes % (auto) 16.8 %; Mean Corpuscular Hemoglobin 30.5 pg (25.0-34.0); Mean Corpuscular Hgb Conc 34.7 g/dL (32.0-36.0); Mean Corpuscular Volume 87.8 fL (80.0-100.0); Mean Platelet Volume 9.6 fL (9.4-12.4); Monocytes # (auto) 0.81 K/uL (0.11-0.59); Monocytes % (auto) 9.2 %; Neutrophils # (auto) 6.07 K/uL (1.40-6.50); Neutrophils % (auto) 69.2 %; Platelet Count 218 K/uL (130-400); RDW Coefficient of Variation 13.2 % (11.5-14.5); RDW Standard Deviation 42.2 fL (36.4-46.3); Red Blood Count 5.41 M/uL (4.70-6.10); White Blood Count 8.77 K/ul (4.8-10.8)
[2023-02-12] MEDS ORDERED: MIDAZOLAM HCL 1 MG/ML 2ML VIAL ONE ×2 (08:02→11:03)
[2023-02-12] MEDS ORDERED: PROPOFOL IV EMULSION 10 MG/ML 20 ML VIAL IV ONE ×4 (08:02→14:51)
[2023-02-12] MEDS ORDERED: ONDANSETRON INJ 2 MG/ML 2 ML VIAL ONE (08:02)
[2023-02-12] MEDS ORDERED: LIDOCAINE 2% 2 ML VIAL/AMP(20MG/ML) INFIL ONE ×2 (08:02→11:05)
[2023-02-12] MEDS ORDERED: fentaNYL citrate PF 100 MCG/2 ML VIAL ONE (08:02)
[2023-02-12] MEDS ORDERED: ROCURONIUM BROMIDE 10 MG/ML 5 ML VIAL IV ONE (08:02)
[2023-02-12] MEDS ORDERED: DEXAMETHASONE SOD INJ 4 MG/ML VIAL ONE (08:02)
[2023-02-12 08:17] LABS: BUN Creatinine Ratio 30.2 (10-20); Calcium 9.8 mg/dl (8.6-10.3); Creatinine Clr Calc Pharmacy 75.1 ml/min; Est GFR (African American) 101.8 ml/min; Est GFR (Non-African American) 87.9 ml/min; Potassium 4.8 mmol/L (3.5-5.1)
[2023-02-12] MEDS ORDERED: ATROPINE SULFATE 0.1 MG/ML 10ML SYR IV PRN (08:19)
[2023-02-12] MEDS ORDERED: ONDANSETRON INJ 2 MG/ML 2 ML VIAL IV PRN (08:19)
[2023-02-12] MEDS ORDERED: HYDROmorphone INJ 2 MG/ML SYR/VIAL IV PRN (08:19)
[2023-02-12] MEDS ORDERED: ePHEDrine sulfate 50 MG/ML AMP IV PRN (08:19)
[2023-02-12] MEDS ORDERED: fentaNYL citrate PF 100 MCG/2 ML VIAL IV PRN (08:19)
--- NOTE | 2023-02-12 10:14 | History & Physical Bridge Note ---
Date of Service February 12, 2023 History & Physical Bridge Note I have examined the patient, reviewed the History & Physical and in the interval since the performance of the History & Physical I have noted the following changes of clinical significance: no changes noted
[2023-02-12] MEDS ORDERED: SUGAMMADEX SODIUM 200 MG/2 ML VIAL IV ONE (10:58)
[2023-02-12] MEDS ORDERED: KETAMINE 50 MG/5 ML SYRINGE ONE (11:03)
[2023-02-12] MEDS ORDERED: HYDROmorphone INJ 2 MG/ML SYR/VIAL ONE (11:09)
[2023-02-12] MEDS ORDERED: ePHEDrine sulfate 50 MG/ML SYR ONE (11:19)
[2023-02-12] MEDS ORDERED: LIDOCAINE 1%/EPINEPHRINE 1:100,000 50 ML VIAL INFIL ONE (13:53)
[2023-02-12] MEDS ORDERED: GLYCOPYRROLATE 0.2 MG/ML VIAL ONE (14:29)
[2023-02-12] MEDS ORDERED: TRANEXAMIC ACID / 0.7% NACL 1,000 MG/100 ML BAG IV ONE (14:39)
[2023-02-12] MEDS ORDERED: FLOSEAL HEMOSTATIC MATRIX 10ML TOP ONE (14:41)
[2023-02-12 14:42] LABS: Hematocrit (blood only) 42.7 % (42.0-52.0); Hemoglobin 14.7 g/dl (14.0-18.0); Mean Corpuscular Hemoglobin 30.4 pg (25.0-34.0); Mean Corpuscular Hgb Conc 34.4 g/dL (32.0-36.0); Mean Corpuscular Volume 88.4 fL (80.0-100.0); Mean Platelet Volume 9.7 fL (9.4-12.4); Platelet Count 182 K/uL (130-400); RDW Coefficient of Variation 13.1 % (11.5-14.5); Red Blood Count 4.83 M/uL (4.70-6.10); White Blood Count 8.18 K/ul (4.8-10.8)
[2023-02-12 14:49] LABS: Partial Thromboplastin Time 28.1 Seconds (21.0-31.0); Prothrombin Time 10.8 Seconds (9.0-12.0)
[2023-02-12] MEDS ORDERED: SUCCINYLCHOLINE CHLORIDE 20 MG/ML 10 ML VIAL IV ONE (14:51)
--- NOTE | 2023-02-12 14:52 | Communication Note ---
Date of Service: February 12, 2023 The procedure ended and the patient was awakened. there wasPrior to extubation, it was noted by chair upholsterer that the left side had severe swelling. the wound was also bleeding. pt was not extubated. surgeon reexplored the wound. surgeon asked for paralysis. Rocuronium given without a change in train of 4. Surgeon closed the wound. Pt was extubated. Pt did not cough or kumari. Pt was making loud snoring sounds. nasal airway placed. I listened to the neck area and had laminar flow. pt was saturating at 96% on 8L. pt had some swelling of his face, but no signs of bleeding and was stable. Pt was moved out of the room when Dr austin came by and felt the patient needed to be drained again. Pt was preoxygenated. Induction was with propofol and succynicholine. Glidescope showed a patent airway with no signs of swelling. tube was passed easily. b/l bs and +etco2. coags were sent. Tranexamic acid to be given because of the recurrent bleeding.
[2023-02-12 15:01] LABS: Basophils # (auto) 0.04 K/uL (0-0.2); Basophils % (auto) 0.5 %; Eosinophils # (auto) 0.05 K/uL (0-0.50); Eosinophils % (auto) 0.6 %; Immature Granulocytes # (auto) 0.06 K/uL (0.01-0.20); Immature Granulocytes % (auto) 0.7 %; Lymphocytes # (auto) 0.44 K/uL (1.2-3.4); Lymphocytes % (auto) 5.4 %; Monocytes # (auto) 0.21 K/uL (0.11-0.59); Monocytes % (auto) 2.6 %; Neutrophils # (auto) 7.38 K/uL (1.40-6.50); Neutrophils % (auto) 90.2 %; RBC Morphology Unremarkable
--- NOTE | 2023-02-12 15:16 | Post Operative Brief Note ---
PG Immediate Post Op with CF Date of Surgery February 12, 2023 Pre & Post Diagnosis Operation Date: 02/12/23 08:30 Pre-Op Diagnosis: Benign Left Parotid Tumor Post-Op Diagnosis: Benign Left Parotid Tumor Post Operative Hematoma I identified the patient and participated in the time-out.: Yes Procedure Operation Date: 02/12/23 08:30 Actual Procedures p Left Superficial Parotidectomy(Left) - Jhonatan Miner MD s Evacuation Hematoma(Left) - Jhonatan Miner MD Surgeon Jhonatan Miner MD Occ Therapy Asst none Estimated Blood Loss 175 Findings Consistent with Post-Op Diagnosis Patient developed a postoperative hematoma twice. The first time the inferior stump of the external jugular vein was bleeding. I believe because of poor seal from the focus harmonic scalpel. The second time it was because of occlusion of the j-p drain. Specimens Specimen Description: A. Left parotid. Drains Theo-Anne Drain (Dc'ed prior to second hematoma evacuation) and [place] Drain Complications postoperatine wound hematoma times two
[2023-02-12] MEDS ORDERED: ACETAMINOPHEN W/CODEINE #3 1 TAB PO PRN ×2 (15:17→19:07)
[2023-02-12] MEDS ORDERED: METOPROLOL TARTRATE 1 MG/ML VIAL IV STA (15:25)
[2023-02-12] MEDS ORDERED: INSULIN ASPART PER UNIT CHARGE SC STA (15:27)
[2023-02-12] MEDS ORDERED: SODIUM CHLORIDE 0.9% 1000ML 1,000 ML IV SCH ×2 (15:30→19:15)
--- NOTE | 2023-02-12 15:53 | Anesthesiology Progress Note ---
Date of Service February 12, 2023 Anesthesia Post Procedure Vital Signs Vital Signs: Temp Pulse Pulse Pulse Resp BP BP 02/12/23 15:45 63 16 145/90 H 02/12/23 15:35 69 15 155/93 H 02/12/23 15:25 78 20 156/83 H 02/12/23 15:17 36 C L 76 12 162/95 H 02/12/23 15:28 75 156/83 H 02/12/23 07:37 36.7 C 63 20 BP Pulse Ox O2 Del Method O2 Flow Rate 02/12/23 15:45 97 Oxymask 4 02/12/23 15:35 98 Oxymask 6 02/12/23 15:25 98 Oxymask 6 02/12/23 15:17 97 Oxymask 8 02/12/23 15:28 02/12/23 07:37 127/93 95 Room Air Transfer of Care Handoff Completed per policy Notes Mental Status: alert / awake / arousable and participated in evaluation Patient Amnestic to Procedure: Yes Nausea / Vomiting: adequately controlled Pain: adequately controlled Airway Patency, RR, SpO2: stable & adequate BP & HR: stable & adequate Hydration State: stable & adequate Anesthetic Complications: no major complications apparent and Pt Satisfied with anesthetic care
--- NOTE | 2023-02-12 16:33 | Operative Report ---
PG Post Operative Report Pre & Post Diagnosis Operation Date: 02/12/23 08:30 Pre-Op Diagnosis: Benign Left Parotid Tumor Post-Op Diagnosis: Benign Left Parotid Tumor Post Operative Hematoma I identified the patient and participated in the time-out.: Yes Procedure Operation Date: 02/12/23 08:30 Actual Procedures p Left Superficial Parotidectomy(Left) - Jhonatan Miner MD s Evacuation Hematoma(Left) - Jhonatan Miner MD Surgeon Jhonatan Miner MD [employer] Developer none Estimated Blood Loss 175 Findings Consistent with Post-Op Diagnosis Left parotid tumor as well postoperative hemorrhage. Specimens Left superficial parotid with tumor Drains Alyce drain Complications Postop wound hemorrhage Description of Procedure Under general anesthesia with the patient intubated the patient prepped and draped usual manner. The skin incision was mapped out. I infiltrated with lidocaine and half epinephrine. I divided skin and subcutaneous tissues. I elevated the tissues off of the parotid gland. I then went between the parotid and the external auditory canal. I used cautery as well as harmonic scalpel to divide the tissue. I then extended the dissection posterior and inferior into the neck. I went down to the sternocleidomastoid muscle. I then went anterior to the sternocleidomastoid muscle. Identified the external jugular vein which I divided with the harmonic scalpel. I then went down and identified the posterior belly digastric. I then went between the ear canal and the parotid and followed it down and until I identified the facial nerve. There were a vessel seen which were divided and either cauterized with bipolar cautery or I used the harmonic scalpel. Once the nerve was identified then I dissected the parotid and subcutaneous tissues off of the facial nerve. I started first following the cervical branches and then identified those follow dose to the extreme and then followed to the ramus mandibular branch where it went anterior to the posterior vein. I followed the mandibular branch and then also the nasal branch. This was done I was completely around the tumor. So I resected the parotid inferior portions of the superficial lobe and did this with a scalpel. Any bleeding seen was cauterized. The nerve was intact at the end of the procedure. I stimulated the nerve to make sure it was intact. I irrigated the area to make sure there is no bleeding. Everything looked fine so I put in a Theo-Anne drain through a separate stab wound. I then closed the wound with 4-0 Monocryl and Ethilon. Patient was still intubated when it was apparent that there was bleeding from the wound. So after everything was arranged on the table I opened the wound. The stump of the external jugular vein was bleeding. So I clamped and tied off with a 3-0 silk. I irrigated the area and there was no further bleeding. I left the Theo-Anne drain within the wound. Closed the wound again with formal Monocryl but this time I used sherry for skin. Patient was woken up and there was some swelling in his face. There was no blood in the bulb of the Theo-Anne drain but there was a swelling in the wound. As a result the patient had to be reintubated but back to sleep. When he opened the wound there was some small areas where there is a bit of bleeding but not much. So I went and examined every area irrigated the area with saline and really did not find any new bleeding. I think the blood accumulated because the Theo-Anne drain was blocked. So I put in some fibrous seal and a 1 inch Alyce drain. I sutured the wound again with 4-0 Monocryl and used sherry for the skin. There is no further bleeding. A pressure dressing was applied. Patient tolerated procedure well and was transferred to the recovery room in excellent condition approximately 175 cc estimated blood loss I attest to the content of the Intraoperative Record and any orders documented therein. Any exceptions are noted below.
[2023-02-12] MEDS ORDERED: metFORMIN HCL 500 MG TAB PO SCH (18:12)
[2023-02-12] MEDS ORDERED: busPIRone 5 MG TAB PO PRN (18:12)
[2023-02-12] MEDS ORDERED: NON-FORMULARY MEDICATION (Aspirin 81 mg capsule) PO PRN (18:12)
[2023-02-12] MEDS ORDERED: PANTOprazole 40 MG TAB PO PRN (18:12)
[2023-02-12] MEDS ORDERED: NON-FORMULARY MEDICATION (Insulin Aspart U-100 [Novolog Flexpen U-100 Insulin] 100 unit/mL SQ SCH (18:12)
[2023-02-12] MEDS ORDERED: GABAPENTIN 600 MG TAB PO PRN (18:12)
[2023-02-12] MEDS ORDERED: traMADol HCL 50 MG TABLET PO PRN (18:12)
[2023-02-12] MEDS ORDERED: ALBUTEROL HFA 8 GM INHALER INH PRN (18:12)
[2023-02-12] MEDS ORDERED: PHARMACY GLYCEMIC MGMT CONSULT PRN (20:41)
[2023-02-12] MEDS ORDERED: LANTUS PER UNIT CHARGE SC STA (20:52)
[2023-02-12] MEDS ORDERED: NON-FORMULARY MEDICATION (Insulin Glargine [Lantus Solostar U-100 Insulin] 100 unit/mL (3 SQ SCH (21:00)
[2023-02-12] MEDS ORDERED: TAMSULOSIN HCL 0.4 MG CAP PO SCH (21:00)
[2023-02-12] MEDS ORDERED: HYDROXYCHLOROQUINE SULFATE 200 MG TAB PO SCH (21:00)
[2023-02-12] MEDS ORDERED: LOVASTATIN 20 MG TAB PO SCH (21:00)
[2023-02-12] MEDS ORDERED: FERROUS SULFATE 325 MG TAB PO SCH (21:00)
[2023-02-12] MEDS ORDERED: clonazePAM 0.5 MG TAB PO SCH (21:00)
[2023-02-12] MEDS: METOPROLOL SUCC 50MG EXT REL TAB PO SCH (21:41)
[2023-02-12] MEDS: INSULIN ASPART PER UNIT CHARGE SC SCH (21:42)
[2023-02-12] MEDS: PRAMIPEXOLE DIHYDROCHLO 0.5 MG TAB PO SCH (21:43)
[2023-02-13] MEDS: INSULIN ASPART PER UNIT CHARGE SC SCH ×3 (01:38→08:50)
[2023-02-13] MEDS: PRAMIPEXOLE DIHYDROCHLO 0.5 MG TAB PO SCH (08:34)
[2023-02-13] MEDS: METOPROLOL SUCC 50MG EXT REL TAB PO SCH (08:35)
[2023-02-13] MEDS ORDERED: LANTUS PER UNIT CHARGE SC ONE (09:00)
[2023-02-13] MEDS ORDERED: EMPAGLIFLOZIN 10 MG TAB PO SCH (09:00)
[2023-02-13] MEDS ORDERED: FATTY ACIDS PO SCH (09:00)
[2023-02-13] MEDS ORDERED: NON-FORMULARY MEDICATION (Liraglutide 0.6 mg/0.1 mL (18 mg/3 mL) pen injector) SQ SCH (09:00)
[2023-02-13] MEDS ORDERED: ENALAPRIL MALEATE 5 MG TAB PO SCH (09:00)
[2023-02-13] MEDS ORDERED: ASCORBIC ACID 500 MG TAB PO SCH (09:00)
[2023-02-13] MEDS ORDERED: OMEGA PO SCH (09:00)
--- NOTE | 2023-02-19 12:39 | Discharge Summary ---
Date of Service February 19, 2023 Admission HPI Per Admitting Provider Patient had some bleeding after surgery so he was admitted for overnight observation. Admission Exam (Per Admitting) Constitutional Patient alert and oriented. No bleeding. Discharge Data Procedures Performed Operation Date: 02/12/23 08:30 Actual Procedures p Left Superficial Parotidectomy(Left) - Jhonatan Miner MD s Evacuation Hematoma(Left) - Jhonatan Miner MD Hospital Course (1) Warthin's tumor: Plan Patient would did well after surgery so did was discharged on the first postoperative day. Discharge Instructions Patient instructed to return to see me in 3 days for drain removal
== END 2023-02-13 12:14 | disposition home or self-care (01) ==
LOC: ASU 06:49 → 3W 06:49

== ENCOUNTER 2023-09-29 09:04 | Observation (INO) ==
--- NOTE | 2023-09-09 16:06 | PAT Medication Instructions ---
Medication Instructions Date of Service September 09, 2023 Home Medications Medication Instructions Recorded albuterol sulfate 90 mcg/actuation 2 puff inhalation QID PRN 12/25/20 aerosol inhaler (Ventolin HFA) shortness of breath or wheezing #8.5 grams ramipril 5 mg capsule 5 mg PO QAM #90 caps 02/03/23 lovastatin 40 mg tablet 40 mg PO QPM #90 tabs 05/01/23 alprazolam 0.5 mg tablet (Xanax) 0.5 mg PO .COMPLEX #2 tabs 05/06/23 metoprolol succinate 50 mg 50 mg PO QAM #90 tabs 05/11/23 tablet,extended release 24 hr tramadol 50 mg tablet 100 mg (2 x 50 mg) PO HS PRN Pain 05/11/23 #180 tabs clonazepam 0.5 mg tablet 0.5 mg PO HS #90 tabs 07/29/23 rotigotine 2 mg/24 hour 2 mg transdermal DAILY #30 ea 08/21/23 transdermal 24 hour patch (Neupro) ascorbic acid (vitamin C) 1,000 mg tablet 1 gm PO UD PRN liraglutide 0.6 mg/0.1 mL (18 mg/3 mL) subcutaneous pen injector 1.8 mg subcut QAM metformin 1,000 mg tablet 1,000 mg PO BID omega-3 fatty acids 1,000 mg capsule (Fish Oil Concentrate) 1,000 mg PO QAM albuterol sulfate 90 mcg/actuation aerosol inhaler (Ventolin HFA) 2 puff inhalation QID PRN insulin glargine 100 unit/mL (3 mL) subcutaneous pen (Lantus Solostar U-100 Insulin) 14 unit subcut HS ramipril 5 mg capsule 5 mg PO QAM antiarthritic combination no.2 900 mg tablet (glucosamine-chondroitin) 900 mg PO UD lovastatin 40 mg tablet 40 mg PO QPM alprazolam 0.5 mg tablet (Xanax) 0.5 mg PO .COMPLEX empagliflozin 25 mg tablet 25 mg PO QAM insulin aspart U-100 100 unit/mL (3 mL) subcutaneous pen (Novolog FlexPen U-100 Insulin aspart) 1 sliding scale dose subcut DIRECTED metoprolol succinate 50 mg tablet,extended release 24 hr 50 mg PO QAM tramadol 50 mg tablet 100 mg (2 x 50 mg) PO HS PRN clonazepam 0.5 mg tablet 0.5 mg PO HS hydroxychloroquine 200 mg tablet 400 mg PO QPM rotigotine 2 mg/24 hour transdermal 24 hour patch (Neupro) 2 mg transdermal DAILY tadalafil 5 mg tablet 5 mg PO HS STOP 3 days before surgery empagliflozin 25 mg tablet 25 mg PO QAM Continue as directed alprazolam 0.5 mg tablet (Xanax) 0.5 mg PO .COMPLEX rotigotine 2 mg/24 hour transdermal 24 hour patch (Neupro) 2 mg transdermal DAILY ASK your prescriber and surgeon hydroxychloroquine 200 mg tablet 400 mg PO QPM STOP taking 2 weeks before surgery (or as soon as possible if surgery is within 2 weeks) omega-3 fatty acids 1,000 mg capsule (Fish Oil Concentrate) 1,000 mg PO QAM antiarthritic combination no.2 900 mg tablet (glucosamine-chondroitin) 900 mg PO UD DO NOT take the morning of surgery ascorbic acid (vitamin C) 1,000 mg tablet 1 gm PO UD PRN liraglutide 0.6 mg/0.1 mL (18 mg/3 mL) subcutaneous pen injector 1.8 mg subcut QAM metformin 1,000 mg tablet 1,000 mg PO BID ramipril 5 mg capsule 5 mg PO QAM insulin aspart U-100 100 unit/mL (3 mL) subcutaneous pen (Novolog FlexPen U-100 Insulin aspart) 1 sliding scale dose subcut DIRECTED Take morning of surgery With a small sip of water, OTHERWISE NOTHING TO EAT OR DRINK AFTER MIDNIGHT: albuterol sulfate 90 mcg/actuation aerosol inhaler (Ventolin HFA) 2 puff inhalation QID PRN(use if needed; please bring with you to hospital day of surgery if possible) metoprolol succinate 50 mg tablet,extended release 24 hr 50 mg PO QAM Take evening before surgery metformin 1,000 mg tablet 1,000 mg PO BID albuterol sulfate 90 mcg/actuation aerosol inhaler (Ventolin HFA) 2 puff inhalation QID PRN(if needed) insulin glargine 100 unit/mL (3 mL) subcutaneous pen (Lantus Solostar U-100 Insulin) 14 unit subcut HS lovastatin 40 mg tablet 40 mg PO QPM tramadol 50 mg tablet 100 mg (2 x 50 mg) PO HS PRN(if needed) clonazepam 0.5 mg tablet 0.5 mg PO HS tadalafil 5 mg tablet 5 mg PO HS Other Notes If you have any questions please call us at [phone] or [phone] or [phone] or [phone]
--- NOTE | 2023-09-15 14:38 | Anesthesiology Consultation ---
Date of Service September 15, 2023 Assessment & Plan (1) Encounter for pre-operative examination: Chart Review Chart Review: Acceptable Risk for Surgery (pending review of anesthesia record for 09/18/23 procedure ) and Patient seen in Pre Admission Testing - Check BSG AM DOS Patient scheduled for [facility] on 09/18/23 at [facility] [place] - Patient is NOT an ideal OPJ candidate (due to comorbidities) Per PAT appt on 09/15/23, on 09/05/23 had head congestion/nasal congestion- no fever or chills- symptoms resolved by 09/08/23. No recent illness/disease exposures or recent illness/disease positive tests. Will leave to surgeon's discretion if preop Covid testing needed Teaching & Discussion Pre-Anesthesia Teaching/Discussion Notes: Instructed NPO after midnight before surgery,except medications with 15 cc of water. Medication instructions provided according to the PAT guidelines. History Surgery Operation Date: 09/29/23 12:30 Proposed Procedures p Left Total Knee Arthroplasty - Teodoro Malave MD Height/Weight Height: 5 ft 4 in Weight: 72.9 kg Allergies Allergy/AdvReac Type Severity Reaction Status Date / Time cat dander Allergy Intermediate watery Verified 09/09/23 13:38 eyes/tongue swelling Penicillins Allergy Intermediate Hives, Verified 09/09/23 13:38 itching Medications Home Medications Medication Instructions Recorded Confirmed Last Taken ascorbic acid (vitamin C) 1,000 mg 1 gm PO UD PRN "not on a regular 03/22/19 09/09/23 02/11/23 20:00 tablet basis" liraglutide 0.6 mg/0.1 mL (18 mg/3 1.8 mg subcut QAM #81 mL 03/22/19 09/09/23 02/11/23 09:00 mL) subcutaneous pen injector metformin 1,000 mg tablet 1,000 mg PO BID #180 tabs 03/22/19 09/09/23 02/11/23 09:00 omega-3 fatty acids 1,000 mg 1,000 mg PO QAM 03/28/20 09/09/23 02/10/23 09:00 capsule (Fish Oil Concentrate) albuterol sulfate 90 mcg/actuation 2 puff inhalation QID PRN 12/25/20 09/09/23 09/05/21 05:00 aerosol inhaler (Ventolin HFA) shortness of breath or wheezing #8.5 grams insulin glargine 100 unit/mL (3 14 unit subcut HS 04/17/21 09/09/23 02/11/23 09:00 mL) subcutaneous pen (Lantus Solostar U-100 Insulin) ramipril 5 mg capsule 5 mg PO QAM #90 caps 02/03/23 09/09/23 02/10/23 20:00 antiarthritic combination no.2 900 900 mg PO UD 05/01/23 09/09/23 Unknown mg tablet (glucosamine-chondroitin) lovastatin 40 mg tablet 40 mg PO QPM #90 tabs 05/01/23 09/09/23 Unknown alprazolam 0.5 mg tablet (Xanax) 0.5 mg PO .COMPLEX #2 tabs 05/06/23 09/09/23 Unknown empagliflozin 25 mg tablet 25 mg PO QAM 05/06/23 09/09/23 Unknown insulin aspart U-100 100 unit/mL 1 sliding scale dose subcut 05/06/23 09/09/23 Unknown (3 mL) subcutaneous pen (Novolog DIRECTED FlexPen U-100 Insulin aspart) metoprolol succinate 50 mg 50 mg PO QAM #90 tabs 05/11/23 09/09/23 Unknown tablet,extended release 24 hr tramadol 50 mg tablet 100 mg (2 x 50 mg) PO HS PRN Pain 05/11/23 09/09/23 Unknown #180 tabs clonazepam 0.5 mg tablet 0.5 mg PO HS #90 tabs 07/29/23 09/09/23 Unknown hydroxychloroquine 200 mg tablet 400 mg PO QPM 08/10/23 09/09/23 Unknown rotigotine 2 mg/24 hour 2 mg transdermal DAILY #30 ea 08/21/23 09/09/23 Unknown transdermal 24 hour patch (Neupro) tadalafil 5 mg tablet 5 mg PO HS 09/09/23 09/09/23 Unknown Past Medical History Medical History (Updated 09/15/23 @ 15:14 by Maribel Uribe PA-C) BPH (benign prostatic hyperplasia) Cardiac murmur "mild" per patient No significant murmur noted at PAT 09/15/23 Chronic back pain Chronic obstructive pulmonary disease inh prn>has not used inhaler for a while breathing stable and controlled Degenerative disc disease GERD (gastroesophageal reflux disease) well controlled and stable HTN (hypertension) Hyperlipidemia Lumbar stenosis 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, follows with rheumatology Pulmonary nodules monitoring per PCP- stable per 11/20/[address] Restless leg syndrome Stable - with Neupro Rheumatoid arthritis Stable - follow with rheum Sleep apnea does used cpap device Type 2 diabetes mellitus Has Freestyle Zach Urge incontinence of urine Exercise / Class Metabolic Activity II 4-5 Yardwork/Stairs/Walk up hill (one flight of stairs - no chest pain or SOB ) Past Family History Family History Mother Ovarian cancer Father Diabetes Other Environmental allergies No family history of adverse response to anesthesia No family history of bleeding disorder Denies family history of Prostate cancer Breast cancer Lung cancer Colorectal cancer Past Surgical History Surgical History Fusion of spine lumbar H/O shoulder surgery left H/O sinus surgery H/O umbilical hernia repair (09/05/21) History of cataract surgery RT/LEFT History of colonoscopy History of cystoscopy "collapsed urethra" History of esophagogastroduodenoscopy (EGD) History of parotidectomy Left- 02/12/23= Done under [facility] with Grade 1 view with Glidescope. ETT #7.0 S/P LASIK surgery S/P lumbar laminectomy X 2 [place] teeth removed Past Anesthesia History No Hx of Anesthesia Complications and No Family Hx of Anesthesia Complications History of PONV No Hx of PONV and No Hx of Motion Sickness Social History Smoking Status: Current every day smoker tobacco type: cigarettes Smoking cigarettes per day: 5-10 daily (advised) Do You Dip or Chew Tobacco: No Hx Alcohol Use: Yes Alcohol type: wine and hard liquor alcohol intake frequency: a few times a month Alcohol Intake Frequency Comment: mixed drinks substance use type: does not use Review of Systems Patient denies chest pain, shortness of breath, dyspnea on exertion, cough, wheezing, palpitations. No hx of seizures, stroke, MS. No hx of blood clots or blood transfusions Physical Exam Vital Signs VITALS BP 120/62 P 57 TEMP 98.0 SP02 95% RESP 16 Constitutional no acute distress ENMT Mouth: no TMJ clicking Thyromental Distance: > or= 3.5 Finger Breadths (3.5) Mallampati Class: II Permanent implant to side tooth Neck + limited neck extension (mild) Respiratory normal respiratory effort; no respiratory distress Auscultation: lungs clear to auscultation bilaterally and + diminished lung sounds (mildly throughout); no wheezes Cardiovascular Rate/Rhythm: regular rate and regular rhythm Heart Sounds: no murmur Vessels: no carotid bruit Musculoskeletal Spine: + pain with cervical ROM (mild stiffness ) Extremities: extremities normal to inspection Psychiatric Orientation: alert Lab Results Anesthesia Preop Results Results Anesthesia Widget: WBC 6.31 K/ul (4.8-10.8) 09/10/23 Hgb 16.3 g/dl (14.0-18.0) 09/10/23 Hct 47.5 % (42.0-52.0) 09/10/23 Plt 227 K/uL (130-400) 09/10/23 Na 136 mmol/L (136-145) 09/10/23 K 4.7 mmol/L (3.5-5.1) 09/10/23 Cl 102 mmol/L (98-107) 09/10/23 CO2 28 mmol/L (21-32) 09/10/23 BUN 24 mg/dl (6-23) H 09/10/23 Creat 0.87 mg/dl (0.6-1.4) 09/10/23 Glucose Level 192 mg/dl (70-99(Fasting)) H 09/10/23 PT 10.2 Seconds (9.0-12.0) 09/02/23 PTT 29 Seconds (21-31) 09/02/23 INR 0.9 (0.9-1.1) 09/02/23 HA1c 8.2 % (4.5-5.6) H 09/02/23 Blood Type A Positive 09/15/23 Antibody Screen NEGATIVE 09/15/23 Testing Laboratory Results Surgeon's office informed of Hgb A1C results- will leave to Dr. 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 No pleural effusions. The lungs are clear. The heart is normal in size. Mildly tortuous thoracic aorta, unchanged. No evidence for pulmonary edema. No acute fractures. Postoperative changes again noted within the left shoulder. Degenerative changes within the thoracic spine. IMPRESSION: No significant change compared to the prior study. No acute process. Echocardiogram Date: 03/04/22 EF: 60-65% LV Function: normal RWMA: + none Other Findings: + LVH (mild/concentric ) and + diastolic dysfunction (Grade I DD) Valvular Disease: + no significant valvular disease Stress Test Date: 11/07/20 Type: exercise (ECHO) Resting EF: 60% Negative exercise stress ECHO and EKG for ischemia at 86% MPHR. 7 METS achieved Normal BP response with exercise Cervical Spine Date: 09/15/23 FINDINGS: Diminished appearance of the bones. Multilevel changes include severe disc space narrowing at C4-C5, C5-C6 and C6-C7. Moderate multilevel spondylotic spurring with moderate to severe facet arthrosis. Slight kyphosis centered at C3-C4. Normal C1-C2 interval. No acute fracture or subluxation. The prevertebral tissues are unremarkable. Lung apices are clear. IMPRESSION: 1. No acute fracture or subluxation. 2. Degenerative changes as above with cervical kyphosis Other Testing Chest CT 11/20/22= No significant change compared to the prior study. Stable subcentimeter pulmonary nodules. These are likely benign given the long-term stability. No new pulmonary nodules identified. Pulmonary arterial hypertension again noted. Mild thickening of the distal esophagus has improved in the interval. Event monitor 04/07/23= NSR. No arrythmia. No reported symptoms
--- NOTE | 2023-09-27 08:08 | History & Physical Report ---
Date of Service September 27, 2023 Assessment & Plan (1) Left knee DJD: 68-year-old gentleman with multiple medical comorbidities with advanced bilateral knee DJD left side worse than the right.. 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 Is failed conservative measures. He like to have his knee replaced. Plan: Will take him to the operating do left total knee replacement for the risks Mente this procedure explained to the patient and include but not limited to DVT, PE, , infection, neurological injury, vascular injury, failure to relieve the symptoms and, need for further surgery in the future. Patient understands and desires to proceed informed consent was obtained. He is planning on staying in the hospital overnight with hopeful discharge postop day 1. Will use aspirin for DVT prophylaxis. [facility]. His preoperative workup his hemoglobin A1c was 8.2. He has been working on improving this. Will use insulin sliding scale coverage in the hospital. History of Present Illness Chief Complaint: . Bilateral knee pain discomfort left side greater than the right. Primary Care Provider: Nupur Keating DO . Patient is an 68-year-old gentleman who presents for surgical pain in his left knee. Is got a long history of knee problems and except had extensive conservative care over the years. He has had both steroid shots and gel shots which have become less successful over time. The left knee bothers him more than the right. He cannot walk any significant distance. Mild swelling. Limps more as the day goes on. He is ready to have his knee fixed. Allergies Allergy/AdvReac Type Severity Reaction Status Date / Time cat dander Allergy Intermediate watery Verified 09/18/23 06:39 eyes/tongue swelling Penicillins Allergy Intermediate Hives, Verified 09/18/23 06:39 itching Home Medications Medication Instructions Recorded Confirmed Type ascorbic acid (vitamin C) 1,000 mg 1 gm PO UD PRN "not on a regular 03/22/19 0 09/09/23 History tablet basis" liraglutide 0.6 mg/0.1 mL (18 mg/3 1.8 mg subcut QAM #81 mL 03/22/19 09/09/23 History mL) subcutaneous pen injector metformin 1,000 mg tablet 1,000 mg PO BID #180 tabs 03/22/19 09/09/23 History omega-3 fatty acids 1,000 mg 1,000 mg PO QAM 03/28/20 09/09/23 History capsule (Fish Oil Concentrate) albuterol sulfate 90 mcg/actuation 2 puff inhalation QID PRN 12/25/20 09/09/23 Rx aerosol inhaler (Ventolin HFA) shortness of breath or wheezing #8.5 grams insulin glargine 100 unit/mL (3 14 unit subcut HS 04/17/21 09/09/23 History mL) subcutaneous pen (Lantus Solostar U-100 Insulin) antiarthritic combination no.2 900 900 mg PO UD 05/01/23 09/09/23 History mg tablet (glucosamine-chondroitin) lovastatin 40 mg tablet 40 mg PO QPM #90 tabs 05/01/23 09/09/23 Rx alprazolam 0.5 mg tablet (Xanax) 0.5 mg PO .COMPLEX #2 tabs 05/06/23 09/09/23 Rx empagliflozin 25 mg tablet 25 mg PO QAM 05/06/23 09/09/23 History insulin aspart U-100 100 unit/mL 1 sliding scale dose subcut 05/06/23 09/09/23 History (3 mL) subcutaneous pen (Novolog DIRECTED FlexPen U-100 Insulin aspart) metoprolol succinate 50 mg 50 mg PO QAM #90 tabs 05/11/23 09/09/23 Rx tablet,extended release 24 hr tramadol 50 mg tablet 100 mg (2 x 50 mg) PO HS PRN Pain 05/11/23 09/09/23 Rx #180 tabs clonazepam 0.5 mg tablet 0.5 mg PO HS #90 tabs 07/29/23 09/09/23 Rx hydroxychloroquine 200 mg tablet 400 mg PO QPM 08/10/23 09/09/23 History rotigotine 2 mg/24 hour 2 mg transdermal DAILY #30 ea 08/21/23 09/09/23 Rx transdermal 24 hour patch (Neupro) tadalafil 5 mg tablet 5 mg PO HS 09/09/23 09/09/23 History ciprofloxacin HCl 500 mg tablet 500 mg PO BID #6 tabs 09/18/23 Rx (Cipro) hydrocodone 5 mg-acetaminophen 325 1 tab PO Q6H PRN pain #10 tabs 09/18/23 Rx mg tablet Past Med/Surg History Medical History Restless leg syndrome Stable - with Neupro Cardiac murmur "mild" per patient No significant murmur noted at PAT 09/15/23 Chronic obstructive pulmonary disease inh prn>has not used inhaler for a while breathing stable and controlled GERD (gastroesophageal reflux disease) well controlled and stable Pulmonary nodules monitoring per PCP- stable per 11/20/[address] Degenerative disc disease Rheumatoid arthritis Stable - follow with rheum Sleep apnea does used cpap device Lumbar stenosis Urge incontinence of urine BPH (benign prostatic hyperplasia) 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 ETT #7.0 History of esophagogastroduodenoscopy (EGD) H/O umbilical hernia repair (09/05/21) H/O shoulder surgery left Fusion of spine lumbar History of cystoscopy "collapsed urethra" History of colonoscopy [place] teeth removed H/O sinus surgery History of cataract surgery RT/LEFT S/P LASIK surgery S/P lumbar laminectomy X 2 Family History Mother Ovarian cancer Father Diabetes Other Environmental allergies No family history of adverse response to anesthesia No family history of bleeding disorder Denies family history of Prostate cancer Breast cancer Lung cancer Colorectal cancer Social History Smoking Status: Current every day smoker Tobacco Type: Cigarettes Age Started Using Tobacco: 33; Cigarettes Per Day: 5-10 daily (advised); Second Hand Exposure: No; Do You Dip or Chew Tobacco: No; Hx Alcohol Use: Yes Alcohol type: wine and hard liquor Preferred Language: Romanian Communication Ability: Effective Visual Impairment: No Limitations Hearing Ability: Normal Sign Maker Required: No Beliefs That Will Affect Care: None marital status: / Current Living Situation: Alone current occupational status: retired 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 Physical Exam . Physical examination is a pleasant elderly male. Looks in reasonably good health. Examination of the left knee reveals patient walks with a bit of a limp. Good varus alignment to his knee with a varus thrust with weightbearing. His range of motion about 5 degrees show full extension to 120 degrees of flexion. There is no instability. Soft endpoint to his Emma. . No pain with hip motion. Constitutional WD/WN, vitals as above Neck trachea midline, no thyromegaly Respiratory normal respiratory effort, lungs clear to auscultation Cardiovascular RRR, no murmur, no edema Gastrointestinal (Abdomen) normal bowel sounds, soft, nontender, no hepatosplenomegaly Results & Data Results & Data Laboratory Results . Diagnostic Findings . X-rays of the left knee reviewed. Shows advanced bilateral knee DJD. Left side is a bit worse than right. Got a little bit of tibiofemoral subluxation. Complete loss of the medial joint space. PG Care Time/CCT Total # of Minutes Spent Total Time Spent with Patient: Total time spent is greater than 50% in coordination of care (as documented) at patient's floor/unit and/or counseling patient: Coding Level of Care Code None Diagnoses Left knee DJD M17.12
[~2023-09-29 09:04] MED LIST changes: +ACETAMINOPHEN 500 MG TAB PO SCH; +ALLERGY Noted to ORDERED Medication SCH; +BUPIVACAINE 0.25% PF 30 ML VIAL ONE; +BUPIVACAINE 0.5 % 5 MG/1 ML PF 10ML VIAL ONE; +CeleBREX 200 MG CAP PO SCH; -LR 15ML/HR IV SCH; +LR 500ML BOLUS, THEN 15ML/HR IV SCH; +LR 60ML/HR IV SCH; +METOCLOPRAMIDE HCL 10 MG TABLET PO SCH; +ROPIV 0.5% 246mg, Ketorolac 30mg, EPINEPHrine 0.5mg in NSS INFIL SCH; +TRANEXAMIC ACID 1,000 MG **IV Intra-op IV SCH
[2023-09-29] MEDS ORDERED: LIDOCAINE 2% 2 ML VIAL/AMP(20MG/ML) INFIL ONE (09:12)
[2023-09-29] MEDS ORDERED: MIDAZOLAM HCL 1 MG/ML 2ML VIAL ONE (09:12)
[2023-09-29] MEDS ORDERED: PROPOFOL IV EMULSION 10 MG/ML 20 ML VIAL IV ONE ×2 (09:12→12:03)
[2023-09-29] MEDS ORDERED: ATROPINE SULFATE 0.1 MG/ML 10ML SYR IV PRN (09:55)
[2023-09-29] MEDS ORDERED: fentaNYL citrate PF 100 MCG/2 ML VIAL IV PRN (09:55)
[2023-09-29] MEDS ORDERED: ONDANSETRON INJ 2 MG/ML 2 ML VIAL IV PRN ×2 (09:55→13:36)
[2023-09-29] MEDS ORDERED: ePHEDrine sulfate 50 MG/ML AMP IV PRN (09:55)
[2023-09-29] MEDS ORDERED: ceFAZolin 2,000 MG/15 ML IV PUSH IV ONE (10:17)
[2023-09-29] MEDS ORDERED: ORTHO JOINT ANESTHETIC ONE (10:24)
--- NOTE | 2023-09-29 10:24 | History & Physical Bridge Note ---
Date of Service September 29, 2023 History & Physical Bridge Note I have examined the patient, reviewed the History & Physical and in the interval since the performance of the History & Physical I have noted the following changes of clinical significance: no changes noted
[2023-09-29] MEDS ORDERED: Nursing to Pharmacy Communication SCH (10:30)
[2023-09-29] MEDS ORDERED: KETAMINE HCL 10MG/ML SYR ONE (10:53)
[2023-09-29] MEDS ORDERED: ceFAZolin 2000MG 2,000 MG/15 ML SYR IV ONE (11:57)
[2023-09-29] MEDS ORDERED: DEXAMETHASONE SOD INJ 4 MG/ML VIAL ONE (12:04)
[2023-09-29] MEDS ORDERED: ONDANSETRON INJ 2 MG/ML 2 ML VIAL ONE (12:04)
[2023-09-29] MEDS ORDERED: GLUCOSE 10 TAB/TUBE PO PRN (12:30)
[2023-09-29] MEDS ORDERED: GLUCOSE 40% GEL 15 GM TUBE PO PRN (12:30)
[2023-09-29] MEDS ORDERED: GLUCAGON FOR INJ 1 MG VIAL SQ PRN (12:30)
[2023-09-29] MEDS ORDERED: DEXTROSE 50% 50 ML SYRINGE IV PRN (12:30)
[2023-09-29] MEDS ORDERED: CARBOHYDRATES FOR HYPOGLYCEMIA PO PRN (12:30)
--- NOTE | 2023-09-29 12:37 | Operative Report ---
PG Post Operative Report Pre & Post Diagnosis Operation Date: 09/29/23 10:40 Pre-Op Diagnosis: Left Knee Advanced Degenerative Joint Disease Post-Op Diagnosis: Left Knee Advanced Degenerative Joint Disease I identified the patient and participated in the time-out.: Yes Procedure Operation Date: 09/29/23 10:40 Actual Procedures p Left Total Knee Arthroplasty(Left) - Teodoro Malave MD Surgeon Teodoro Malave MD Balloon Sander Des Blanchard PA-C Estimated Blood Loss 50 Findings Consistent with Post-Op Diagnosis Operative findings with advanced left knee medial compartment DJD. Grade here grade 4 [id number]-fi-hire disease the medial compartment. The rest of his knee is pretty well spared. He did have a significant varus deformity to his knee as well. Specimens Left knee sent for pathology Anesthesia Type Spinal MAC Complications none Disposition Accompanied Patient To Recovery: No Indications Patient is a 68-year-old gentleman whose had a several year history of increasing left knee pain discomfort describes gotten worse over time. He has failed conservative measures. X-rays show advanced medial compartment arthritis. He elected to proceed with surgical management. Description of Procedure Operative implants consist of: 1 Biomet Vanguard size 70 left posterior stabilized femoral component. 2. Biomet size 75 tibial tray. 3. 10 mm posterior stabilized polyethylene insert. 4. 31 x 8 all poly patella. The patient was taken the op room, identified, placed on the operating table in the supine position. All contact areas were properly padded. IV antibiotics were by anesthesia team. A spinal anesthetic and adductor canal block had been divided in the holding area. Left thigh turn was then placed. Left lower extremity was then prepped and draped in usual sterile fashion. The left leg was elevated exsanguinated with use of an Esmarch and a turn was placed at 300 mmHg. An anterior approach to the left knee was then performed a longitudinal incision centered over the patella. Sharp dissection Through subcutaneous tissue down the extensor mechanism. Medial parapatellar arthrotomy incision was made. Some subperiosteal dissection was carried out medially. The fat pad was resected from his patella tendon. Lateral patellofemoral ligament was released and and the patella was subluxated laterally. The knee was flexed. The osteophytes were taken dysproteinemia. The ACL and PCL were released and the distal femur and the tibia subluxated anteriorly. The external tibial alignment jig was then placed the interface of the tibia and adjusted 14 mm medially. Proximal tibial cut was made removed by a millimeter of bone from most deficient aspect medial tibial plateau. The tibia was sized to a size 75. Attention drawn the femur. The distal femur with a sharp drill. Intramedullary canal was suction. A left 6 3 valgus cutting guide was placed. The distal femoral cutting block was pinned in place. Distal femoral cut was made take an additional 3 mm of bone off the distal femur. The femur was then sized to a size 70. The AP cutting block was pinned parallel to the epicondylar axis which was 4 degrees of external rotation. Anterior, anterior chamfer, posterior, posterior chamfer cuts were made. The box cutting guide was placed and just slight lateral and the box cut was made. The knee was flexed. The remnants of the medial and lateral menisci were excised. The osteophytes were taken off the posterior aspect of the femur. A trial femoral component was placed. The tibial tray was pinned in maximum external rotation and the drill and stem planes used to create defect in the proximal tibia for the tibial tray. The knee was then trialed and the 10 mm insert for most appropriately. Attention drawn the patella. The patella was cleaned of all soft tissue. Patella thickness measured 22 mm in thickness and was cut down to 14. Was sized to a size 31 patella. The lug holes were drilled for 31 patella. The lateral osteophytes removed. Patella button was placed. Knee was taken through range of motion patella tracked nicely with no thumbs test. Attention turned to placing permanent components. All trial components were removed. Bone plug was placed. History of malignant blood loss. A double batch [employer] G cement was mixed. A Biomet Vanguard size 70 left posterior bias femoral component, a size 7 tibial tray, and a 10 mm posterior stabilized polyethylene insert, and a 31 x 8 all poly patella was then cemented in place. The knee was brought out into full extension until cement luis rdened. Final cement check was then performed. The pericapsular tissues were injected with a total of 100 cc of combination of 50 cc of ropivacaine with epinephrine, 30 mg of Toradol, 50 cc of normal saline. The patient did receive 1 g of tranexamic acid but the tourniquet was then let down for final tourniquet time 57 minutes. Hemostasis assured with electrocautery. The extensor mechanism then closed with combination 1 PDS suture #1 Vicryl suture in [id number] fashion. The extensor mechanism was checked found to be intact and the subcutaneous tissue then closed with 2 Dexon suture in buried interrupted fashion skin was closed skin sherry. Leg was then cleaned and dried a sterile dressing with Xeroform, 4 fours, sterile cast padding, Vinod bandage were applied. The patient then transferred to the recovery room in stable condition. Patient tolerated procedure well and there were no complications. Des Blanchard, my physician pediatric physician assistant, was present for the entire procedure. His assistance was essential and required for appropriate patient positioning, prepping and draping, surgical exposure, performing the technical details of the operation, placement the implants, closure of the wound, and placement of the sterile bandage. I attest to the content of the Intraoperative Record and any orders documented therein. Any exceptions are noted below.
--- NOTE | 2023-09-29 12:58 | XRay Report ---
XR knee LT 1 or 2V routine HISTORY: 68 years-old Male Surgical Post Op left knee arthroplasty COMPARISON: 08/17/2023 TECHNIQUE: 2 views of the left knee FINDINGS: Total joint arthroplasty with patellar resurfacing. Anterior midline skin sherry with expected posto perative soft tissue swelling and deep tissue air. No acute fracture or unexpected opaque foreign bod y. IMPRESSION: Total joint arthroplasty with expected postoperative changes. ACT 112: Negative or not required by law. The above report was generated using voice recognition software. It may contain grammatical, syntax o r spelling errors. Electronically signed by: Hiro Art M.D. 09/29/2023 12:57 PM
[2023-09-29] MEDS ORDERED: ALUMINUM/MAGNESIUM SUSP 30 ML UDC PO PRN (13:36)
[2023-09-29] MEDS ORDERED: ALBUTEROL HFA 8 GM INHALER INH PRN (13:36)
[2023-09-29] MEDS ORDERED: METOCLOPRAMIDE HCL INJ 5 MG/ML 2 ML VIAL IV PRN (13:36)
[2023-09-29] MEDS ORDERED: NON-FORMULARY MEDICATION (Ascorbic Acid (Vitamin C) 1,000 mg tablet) PO PRN (13:36)
[2023-09-29] MEDS ORDERED: bisacodyL 10 MG SUPP PR PRN (13:36)
[2023-09-29] MEDS ORDERED: HYDROmorphone INJ 0.5 MG/0.5 ML SYR IV PRN (13:36)
[2023-09-29] MEDS ORDERED: MAGNESIUM HYDROXIDE SUSP 30 ML UDC PO PRN (13:36)
[2023-09-29] MEDS ORDERED: NON-FORMULARY MEDICATION (Insulin Aspart U-100 [Novolog Flexpen U-100 Insulin] 100 unit/mL SQ SCH (13:36)
[2023-09-29] MEDS ORDERED: oxyCODONE HCL IR 5 MG TAB (IMMEDIATE RELEASE) PO PRN (13:36)
[2023-09-29] MEDS ORDERED: PHARMACY GLYCEMIC MGMT CONSULT PRN (13:36)
[2023-09-29] MEDS ORDERED: NALOXONE HCL 0.4 MG/1 ML VIAL/CARP IV PRN (13:36)
[2023-09-29] MEDS ORDERED: SODIUM CHLORIDE 0.9% 1,000 ML IV SCH (13:36)
--- NOTE | 2023-09-29 14:04 | Pharmacy Report ---
Pharmacy Glycemic Short Note 2 - Date of Service September 29, 2023 - Glycemic Short BSG Results (Last 24 hours): 09/29/23 09/29/23 09:40 12:29 POC Glucose 99 113 H OUTPATIENT ANTIDIABETIC REGIMEN: * empagliflozin 25 mg po qam, Lantus 14 units HS, liraglutide 1.8 SQ, metformin 1 gm bid ASSESSMENT: * 68 year old male, now s/p L TKA - POD 0. Pharmacy consulted for glycemic management. Postop BSG 113 mg/dL. Steroids pulled in OR, anticipate steroid induced hyperglycemia. Plan to utilize novolog stress of 2/3 for now. Will add on overnight checks. Plan to time evening basal earlier to be given with dinner in case BSGs start to rise with steroids. PLAN FOR INPATIENT GLYCEMIC CONTROL: * Hold outpatient oral diabetes medications * Basal insulin * Lantus 14 units daily with dinner * Bolus insulin * NovoLog per scale ACHS or Q6hrs while NPO * Goal Range: Low 110 mg/dL - High 140 mg/dL * Correction Factor: 25 mg/dL/unit * Nutritional / Prandial insulin per carb ratio of 1 unit per 9 grams CHO consumed
--- NOTE | 2023-09-29 14:39 | Anesthesiology Progress Note ---
Date of Service September 29, 2023 Anesthesia Post Procedure Vital Signs Vital Signs: Temp Pulse Pulse Resp BP Pulse Ox O2 Del Method 09/29/23 14:27 37.3 C 49 L 17 159/79 H 95 Room Air 09/29/23 14:04 36.8 C 54 L 18 137/73 95 Room Air 09/29/23 13:30 36.9 C 56 L 18 130/64 91 Room Air 09/29/23 13:15 53 L 20 122/67 95 Room Air 09/29/23 13:00 52 L 16 113/65 96 Room Air 09/29/23 12:55 36.6 C 52 L 14 113/64 95 Room Air 09/29/23 12:45 52 L 15 112/60 95 Room Air 09/29/23 12:35 58 L 17 99/46 L 98 Oxymask 09/29/23 12:26 37.2 C 61 16 100/66 100 Oxymask O2 Flow Rate 09/29/23 14:27 09/29/23 14:04 09/29/23 13:30 09/29/23 13:15 09/29/23 13:00 09/29/23 12:55 09/29/23 12:45 09/29/23 12:35 3 09/29/23 12:26 6 Pain Intensity Left Knee: Pain Intensity: 6 Transfer of Care Handoff Completed per policy Notes Mental Status: alert / awake / arousable and participated in evaluation Patient Amnestic to Procedure: Yes Nausea / Vomiting: adequately controlled Pain: adequately controlled Airway Patency, RR, SpO2: stable & adequate BP & HR: stable & adequate Hydration State: stable & adequate Neuraxial Anesthesia: was administered and sensory block is resolving Anesthetic Complications: no major complications apparent and Pt Satisfied with anesthetic care
[2023-09-29] MEDS: ACETAMINOPHEN 500 MG TAB PO SCH ×2 (14:45→21:09)
[2023-09-29] MEDS: KETOROLAC TROMETHAMINE 15 MG/ML VIAL IV SCH ×2 (14:45→21:10)
--- NOTE | 2023-09-29 15:04 | Consultation ---
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 (2) HTN (hypertension): Blood pressures under good control (3) BPH (benign prostatic hyperplasia): On finasteride and tamsulosin (4) Restless legs syndrome: On rotigotine patch (5) Left knee DJD: He is now status post left total knee replacement Status postsurgery Pain is under good control Rest of management per orthopedics Plan Discharge plans by orthopedics History of Present Illness Requesting Physician: Dr. Teodoro Malave Reason for Consultation: Medical management Attending Physician: Teodoro Malave MD History of Present Illness Is a 68-year-old male with a history of degenerative joint disease, type 2 diabetes, COPD, BPH who was admitted to the hospital for an elective knee surgery. He has had worsening knee pain for the past couple of weeks and was assessed and found in need of surgery, he had a total knee replacement on the left internal medicine was consulted for postop management. Currently vital signs are stable blood pressure 159/79. Saturating well on room air. Allergies Allergy/AdvReac Type Severity Reaction Status Date / Time cat dander Allergy Intermediate watery Verified 09/29/23 09:35 eyes/tongue swelling Penicillins Allergy Intermediate Hives, Verified 09/29/23 09:35 itching Home Medications Medication Instructions Recorded Confirmed Type ascorbic acid (vitamin C) 1,000 mg 1 gm PO UD PRN "not on a regular 03/22/19 09/29/23 History tablet basis" liraglutide 0.6 mg/0.1 mL (18 mg/3 1.8 mg subcut QAM #81 mL 03/22/19 09/29/23 History mL) subcutaneous pen injector metformin 1,000 mg tablet 1,000 mg PO BID #180 tabs 03/22/19 09/29/23 History omega-3 fatty acids 1,000 mg 1,000 mg PO QAM 03/28/20 09/29/23 History capsule (Fish Oil Concentrate) albuterol sulfate 90 mcg/actuation 2 puff inhalation QID PRN 12/25/20 09/29/23 Rx aerosol inhaler (Ventolin HFA) shortness of breath or wheezing #8.5 grams insulin glargine 100 unit/mL (3 14 unit subcut HS 04/17/21 09/29/23 History mL) subcutaneous pen (Lantus Solostar U-100 Insulin) antiarthritic combination no.2 900 900 mg PO UD 05/01/23 09/29/23 History mg tablet (glucosamine-chondroitin) lovastatin 40 mg tablet 40 mg PO QPM #90 tabs 05/01/23 09/29/23 Rx alprazolam 0.5 mg tablet (Xanax) 0.5 mg PO .COMPLEX #2 tabs 05/06/23 09/29/23 Rx empagliflozin 25 mg tablet 25 mg PO QAM 05/06/23 09/29/23 History insulin aspart U-100 100 unit/mL 1 sliding scale dose subcut 05/06/23 09/29/23 History (3 mL) subcutaneous pen (Novolog DIRECTED FlexPen U-100 Insulin aspart) metoprolol succinate 50 mg 50 mg PO QAM #90 tabs 05/11/23 09/09/23 Rx tablet,extended release 24 hr tramadol 50 mg tablet 100 mg (2 x 50 mg) PO HS PRN Pain 05/11/23 09/29/23 Rx #180 tabs clonazepam 0.5 mg tablet 0.5 mg PO HS #90 tabs 07/29/23 09/29/23 Rx hydroxychloroquine 200 mg tablet 400 mg PO QPM 08/10/23 09/29/23 History rotigotine 2 mg/24 hour 2 mg transdermal DAILY #30 ea 08/21/23 09/29/23 Rx transdermal 24 hour patch (Neupro) tadalafil 5 mg tablet 5 mg PO HS 09/09/23 09/29/23 History ciprofloxacin HCl 500 mg tablet 500 mg PO BID #6 tabs 09/18/23 09/29/23 Rx (Cipro) hydrocodone 5 mg-acetaminophen 325 1 tab PO Q6H PRN pain #10 tabs 09/18/23 09/29/23 Rx mg tablet acetaminophen 500 mg tablet 1,000 mg (2 x 500 mg) PO TID pain 09/27/23 09/29/23 Rx (Tylenol Extra Strength) 30 days #180 tabs aspirin 81 mg tablet,delayed 81 mg PO BID 45 days #90 tabs 09/27/23 09/29/23 Rx release (Ninoska Low Dose Aspirin) cefadroxil 500 mg capsule 500 mg PO BID 7 days #14 caps 09/27/23 09/29/23 Rx ketorolac 10 mg tablet 10 mg PO Q6 pain 5 days #20 tabs 09/27/23 09/29/23 Rx ondansetron 4 mg disintegrating 4 mg PO Q8 PRN nausea #20 tabs 09/27/23 09/29/23 Rx tablet oxycodone 5 mg tablet 5 - 10 mg (1 - 2 x 5 mg) PO Q6 PRN 09/27/23 09/29/23 Rx pain #40 tabs sennosides 8.6 mg tablet (Senokot) 8.6 mg PO BID prevent constipation 09/27/23 09/29/23 Rx 14 days #28 tabs tamsulosin 0.4 mg capsule (Flomax) 0.4 mg PO DAILY #7 caps 09/27/23 09/29/23 Rx Patient History Medical History Restless leg syndrome Stable - with Neupro Cardiac murmur "mild" per patient No significant murmur noted at PAT 09/15/23 Chronic obstructive pulmonary disease inh prn>has not used inhaler for a while breathing stable and controlled GERD (gastroesophageal reflux disease) well controlled and stable Pulmonary nodules monitoring per PCP- stable per 11/20/[address] Degenerative disc disease Rheumatoid arthritis Stable - follow with rheum Sleep apnea does used cpap device Lumbar stenosis Urge incontinence of urine BPH (benign prostatic hyperplasia) 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 ETT #7.0 History of esophagogastroduodenoscopy (EGD) H/O umbilical hernia repair (09/05/21) H/O shoulder surgery left Fusion of spine lumbar History of cystoscopy "collapsed urethra" History of colonoscopy Wolf teeth removed H/O sinus surgery History of cataract surgery RT/LEFT S/P LASIK surgery S/P lumbar laminectomy X 2 Family History Mother Ovarian cancer Father Diabetes Other Environmental allergies No family history of adverse response to anesthesia No family history of bleeding disorder Denies family history of Prostate cancer Breast cancer Lung cancer Colorectal cancer Social History Smoking Status: Current every day smoker Tobacco Type: Cigarettes Age Started Using Tobacco: 33; Cigarettes Per Day: 5-10 daily (advised); Second Hand Exposure: No; Do You Dip or Chew Tobacco: No; Hx Alcohol Use: Yes Alcohol type: wine and hard liquor Preferred Language: Yi Communication Ability: Effective Visual Impairment: No Limitations Hearing Ability: Normal Manager Market Research Required: No Beliefs That Will Affect Care: None marital status: / Current Living Situation: Alone current occupational status: retired 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 Physical Exam Physical Exam: The patient is awake, alert and oriented 3, well developed and well nourished, normocephalic and atraumatic, lying in bed and in no acute distress. HEENT--PERRL, EOMI, mucous membranes and oropharynx mildly dry Neck--supple. No JVD. No bruits. Thyroid normal, trachea midline, no adenopathy. Heart--normal S1 and S2. Grade 1 systolic murmur, no rubs or gallops. Lungs--clear bilaterally, no respiratory distress, no accessory muscle use. Abdomen--normal bowel sounds and soft. Mild epigastric and left sided abdominal pain Extremities--no cyanosis or clubbing. No edema. Dermatologic--normal skin turgor, normal color, no abnormal lymph nodes, no rash. Neurologic--cranial nerves II through XII grossly intact. Rheumatologic--normal range of motion. Psychiatric--normal affect. Results & Data Vital Signs (Past 12 Hours) Vital Signs Temp Pulse Pulse Resp BP Pulse Ox O2 Del Method 09/29/23 14:27 99.1 F 49 L 17 159/79 H 95 Room Air 09/29/23 14:04 98.2 F 54 L 18 137/73 95 Room Air 09/29/23 13:30 98.4 F 56 L 18 130/64 91 Room Air 09/29/23 13:15 53 L 20 122/67 95 Room Air 09/29/23 13:00 52 L 16 113/65 96 Room Air 09/29/23 12:55 97.9 F 52 L 14 113/64 95 Room Air 09/29/23 12:45 52 L 15 112/60 95 Room Air 09/29/23 12:35 58 L 17 99/46 L 98 Oxymask 09/29/23 12:26 99.0 F 61 16 100/66 100 Oxymask O2 Flow Rate 09/29/23 14:27 09/29/23 14:04 09/29/23 13:30 09/29/23 13:15 09/29/23 13:00 09/29/23 12:55 09/29/23 12:45 09/29/23 12:35 3 09/29/23 12:26 6 (1) 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
[2023-09-29] MEDS: ASCORBIC ACID 500 MG TAB PO SCH (16:34)
[2023-09-29] MEDS ORDERED: LANTUS PER UNIT CHARGE SC SCH (17:00)
[2023-09-29] MEDS: INSULIN ASPART PER UNIT CHARGE SC SCH ×3 (17:29→23:53)
[2023-09-29] MEDS: ceFAZolin 1000MG 1,000 MG/7.5 ML SYR IV SCH (17:31)
[2023-09-29] MEDS ORDERED: ROTIGOTINE PATCH TD SCH (18:30)
[2023-09-29] MEDS ORDERED: TRANEXAMIC ACID / 0.7% NACL 1,000 MG/100 ML BAG IV SCH (18:30)
[2023-09-29] MEDS ORDERED: LOVASTATIN 20 MG TAB PO SCH (21:00)
[2023-09-29] MEDS ORDERED: clonazePAM 0.5 MG TAB PO SCH (21:00)
[2023-09-29] MEDS ORDERED: HYDROXYCHLOROQUINE SULFATE 200 MG TAB PO SCH (21:00)
[2023-09-29] MEDS ORDERED: SENNA 8.6 MG TAB PO SCH ×2 (21:00)
[2023-09-29] MEDS ORDERED: NON-FORMULARY MEDICATION (Insulin Glargine [Lantus Solostar U-100 Insulin] 100 unit/mL (3 SQ SCH (21:00)
[2023-09-29] MEDS: DOCUSATE SODIUM 100 MG CAP PO SCH (21:09)
[2023-09-29] MEDS: ASPIRIN 81 MG ECTAB PO SCH (21:10)
[2023-09-30] MEDS ORDERED: INSULIN ASPART PER UNIT CHARGE SC SCH
[2023-09-30] MEDS: KETOROLAC TROMETHAMINE 15 MG/ML VIAL IV SCH ×2 (01:33→07:24)
[2023-09-30] MEDS: ceFAZolin 1000MG 1,000 MG/7.5 ML SYR IV SCH (01:34)
[2023-09-30] MEDS: INSULIN ASPART PER UNIT CHARGE SC SCH ×2 (04:00→08:16)
[2023-09-30 06:19] LABS: BUN Creatinine Ratio 29.7 (10-20); Calcium 8.7 mg/dl (8.6-10.3); Creatinine Clr Calc Pharmacy 69.1 ml/min; Est GFR (African American) 98.6 ml/min; Est GFR (Non-African American) 85.1 ml/min; Hemoglobin 11.9 g/dl (14.0-18.0); Mean Corpuscular Hemoglobin 30.4 pg (25.0-34.0); Mean Corpuscular Volume 89.3 fL (80.0-100.0); Mean Platelet Volume 9.6 fL (9.4-12.4); Platelet Count 214 K/uL (130-400); RDW Coefficient of Variation 13.6 % (11.5-14.5); RDW Standard Deviation 44.6 fL (36.4-46.3); Red Blood Count 3.92 M/uL (4.70-6.10); White Blood Count 9.58 K/ul (4.8-10.8)
[2023-09-30] MEDS ORDERED: HYDROmorphone INJ 0.5 MG/0.5 ML SYR IV STA (06:36)
[2023-09-30] MEDS: DOCUSATE SODIUM 100 MG CAP PO SCH (07:24)
[2023-09-30] MEDS: ASPIRIN 81 MG ECTAB PO SCH (07:24)
[2023-09-30] MEDS: METOPROLOL SUCC 50MG EXT REL TAB PO SCH ×2 (07:25→07:29)
[2023-09-30] MEDS: ASCORBIC ACID 500 MG TAB PO SCH (07:25)
[2023-09-30] MEDS ORDERED: dexAMETHasone 4 MG TAB PO SCH (08:00)
[2023-09-30] MEDS: ACETAMINOPHEN 500 MG TAB PO SCH (08:19)
[2023-09-30] MEDS ORDERED: TAMSULOSIN HCL 0.4 MG CAP PO SCH (09:00)
[2023-09-30] MEDS ORDERED: NON-FORMULARY MEDICATION (Liraglutide 0.6 mg/0.1 mL (18 mg/3 mL) pen injector) SQ SCH (09:00)
[2023-09-30] MEDS ORDERED: EMPAGLIFLOZIN 25 MG TAB PO SCH (09:00)
[2023-09-30] MEDS ORDERED: OMEGA-3 (PURIFIED FISH OIL) 1 GM CAP PO SCH (09:00)
[2023-09-30] MEDS ORDERED: ROTIGOTINE PATCH TD SCH (09:00)
[2023-09-30] MEDS ORDERED: MULTIVITAMIN TAB PO SCH (09:00)
--- NOTE | 2023-09-30 10:02 | Orthopedic Progress Note ---
Date of Service September 30, 2023 Assessment & Plan (1) Status post left knee replacement: Overall he is doing quite well today with good pain control to the left knee. He will work with physical therapy later this morning to work on ambulation and range of motion exercises. He is on aspirin for DVT prophylaxis. He can be discharged home later this morning pending physical therapy evaluation. He will follow-up with Dr. Malave in 2 weeks for postoperative care. Subjective . Andrea was seen today at bedside resting comfortably in no apparent distress. He notes that his pain to the left knee is well-controlled. He has been up and out of bed with no significant issues. He has yet to be seen by physical therapy. He denies any other concerns this morning. Review of Systems All systems reviewed & are unremarkable except as noted in HPI & below. Physical Exam . On physical examination of the left knee, dressings are clean, dry, intact. His leg is out in full extension. He has active plantarflexion dorsiflexion to the left ankle. +2 DP and PT pulses. Less than 2-second capillary refill. Normal sensation. Neurovascular intact. Results & Data Results & Data Laboratory Results . Diagnostic Findings . Postoperative x-rays of the left knee show prosthesis to be in anatomical alignment with no signs of fracture complication or loosening. PG Care Time/CCT Total # of Minutes Spent Total Time Spent with Patient: Total time spent is greater than 50% in coordination of care (as documented) at patient's floor/unit and/or counseling patient: Coding Level of Care Code 46032 Post Operative Follow-Up Diagnoses Status post left knee replacement Z96.652
--- NOTE | 2023-09-30 10:04 | Discharge Summary ---
Date of Service September 30, 2023 Admission HPI (Per Admitting) . Patient is an 68-year-old gentleman who presents for surgical pain in his left knee. Is got a long history of knee problems and except had extensive conservative care over the years. He has had both steroid shots and gel shots which have become less successful over time. The left knee bothers him more than the right. He cannot walk any significant distance. Mild swelling. Limps more as the day goes on. He is ready to have his knee fixed. Admission Exam (Per Admitting) . Physical examination is a pleasant elderly male. Looks in reasonably good health. Examination of the left knee reveals patient walks with a bit of a limp. Good varus alignment to his knee with a varus thrust with weightbearing. His range of motion about 5 degrees show full extension to 120 degrees of flexion. There is no instability. Soft endpoint to his Emma. . No pain with hip motion. Principal Diagnosis Same as "Discharge Diagnosis" noted below under Discharge Instructions. Discharge Exam . On physical examination of the left knee, dressings are clean, dry, intact. His leg is out in full extension. He has active plantarflexion dorsiflexion to the left ankle. +2 DP and PT pulses. Less than 2-second capillary refill. Normal sensation. Neurovascular intact. Discharge Data Consultations 09/29/23 13:36 Consult Hospitalist Routine Procedures Performed Operation Date: 09/29/23 10:40 Actual Procedures p Left Total Knee Arthroplasty(Left) - Teodoro Malave MD Ordered Studies 09/29/23 05:00 US - OR guided needle placemen Routine Hospital Course (1) Status post left knee replacement: On September 29, 2023 Stu arrived at [facility] and underwent a left total knee arthroplasty performed by Dr. Malave with no complications. He had a spinal anesthetic. Postoperatively, he was started on aspirin for DVT prophylaxis and transferred to the general orthopedic floor in stable condition. His hospital course was uneventful. On postoperative day #1, his vital signs were stable and his pain was well-controlled. He participated well with physical therapy working on ambulation and range of motion exercises. He was then discharged home in stable condition. He will follow-up with Dr. Malave in 2 weeks for postoperative care. PG Care Time/CCT Total # of Minutes Spent Total Time Spent with Patient: Total time spent is greater than 50% in coordination of care (as documented) at patient's floor/unit and/or counseling patient: Discharge Plan Discharge Items Patient Disposition: Home - Home Health Services Reason For Visit: DJD Knee Left Discharge Diagnosis: Left Knee Replacement Activity: Per Instructions section Weightbearing: Full weightbearing Non-emergency contact: Surgeon Call non-emergency contact if: you have any medication questions Follow-up/Referrals: Nupur Keating, [Primary Care Provider] - 10/02/23 10:00 am Diet: Carb Consistent or DM2 Addtl Attending Provider Instructions: ACTIVITY RECOMMENDATIONS: Physical Therapy: * You will go to physical therapy three times each week for four to six weeks after your surgery in order to regain your knee range of motion and to retrain your knee to work properly. * It is just as important to make sure you are getting your knee perfectly straight as it is to regain your knee bend. * Taking a pain pill an hour before therapy can help you have a more productive and comfortable therapy session. Home Exercise: * You were shown a series of exercises (heel props, heel slides, etc.) in the hospital. Do these exercises three to four times each day including the exercises you were shown in physical therapy. Walking: * Get up and walk several times each day. For the first four weeks, try not to stand or walk for more than one hour at a time. If you do stand or walk for more than one hour, you will not hurt anything, but your knee and leg will likely swell. * As you feel comfortable, you may change from the walker or crutches to a cane and then to independent walking. MEDICATIONS: New Medicine: * You will likely be taking one or more of these medications: 1. Oxycodone - A quick and shorter-acting pain medication. Take one to two tablets every six hours to lessen your pain. 2. Aspirin - Thins your blood to lessen the chance of forming a blood clot. * The most common side effects of pain medicine and iron are nausea and constipation. If nausea or constipation is too much of a problem or if you have any questions about your new medicines or doses, call [facility] at [phone]. We will try to help you manage these issues. "VERY IMPORTANT TO READ AND REVIEW" Pain: * The immediate post-operative period after knee replacement surgery is often quite painful. * You are given a prescription for pain medicine. You should take it, as directed, when you need it, especially before physical therapy and before going to bed. Pain that interferes with sleep is very common and can last several months. * You will likely need pain medicine for the first four to six weeks. It will not stop all of the pain. The pain will lessen and as you feel better, you may change to milder pain medicine such as Tylenol. * The most common side effects of pain medicine are nausea and constipation, so don't take more than you need. SPECIAL CARE INSTRUCTIONS: TEDs/Elastic Stockings: * The white elastic stockings help limit swelling and prevent blood clots from forming in your legs. The more you wear them, the more they work. * Wear them for six weeks after knee replacement surgery and four weeks after partial knee replacement. Incision Site Care: * Remove dressing postoperative day 2 and then shower. Keep direct shower pressure off the incision site. * After showering, cover sherry with dry gauze and change daily or more frequently if the dressing is getting saturated with drainage. * Use the TAMIKO stockings to hold dressing in place. DO NOT apply tape on the skin. * May completely stop using bandage if wound is dry and no drainage * [place] are removed between 2 and 3 weeks post-op. If your follow-up appointment is made before 2 weeks, please have your appointment re- scheduled. It is too early to remove the sherry. Prevention of Infection: * Take antibiotics one hour before any dental cleaning, dental work, urological procedure, gastrointestinal procedure or any invasive surgery in order to prevent your new joint from getting infected. * You may get the antibiotics from the doctor performing the procedure or you may call our office at [phone] before and we will call in a prescription to the pharmacy of your choice. Things to Watch For: * Drainage from the incision site that occurs more than one week after your surgery. * Severely increased knee/leg pain or swelling. * Increased redness at the incision site. * Fever above 102 degrees Fahrenheit. * Unusual chest pain or shortness of breath. * Unusual pain or burning with urination. Call [facility] at [phone] with any of the above problems or if you have any questions about your medicines or recovery. FOLLOW UP VISIT: Make an appointment to see your doctor for approximately two weeks after surgery for a progress check and staple removal by calling the office at [phone]. Pending Studies at Discharge: No Stand-Alone Forms: [facility], Smoking Cessation Medications and DC Order Prescriptions: Continued clonazepam 0.5 mg tablet 0.5 mg PO HS Qty: 90 0RF oxycodone 5 mg tablet 5 - 10 mg PO Q6 PRN (Reason: pain) Qty: 40 0RF Rx Instructions: Take as needed for pain. Do not take more than 6 tablets per day. ondansetron 4 mg tablet,disintegrating 4 mg PO Q8 PRN (Reason: nausea) Qty: 20 1RF Rx Instructions: Take as needed for nausea ketorolac 10 mg tablet 10 mg PO Q6 5 Days Qty: 20 0RF Rx Instructions: Take 4 times per day with food for 5 days to lessen pain and swelling. sennosides [Senokot] 8.6 mg tablet 8.6 mg PO BID 14 Days Qty: 28 0RF Rx Instructions: Take two times a day to prevent/treat constipation acetaminophen [Tylenol Extra Strength] 500 mg tablet 1,000 mg PO TID 30 Days Qty: 180 0RF Rx Instructions: Take 3 times per day to lessen pain. aspirin [Ninoska Low Dose Aspirin] 81 mg tablet,delayed release (DR/EC) 81 mg PO BID 45 Days Qty: 90 0RF Rx Instructions: Take to prevent blood clots. tamsulosin [Flomax] 0.4 mg capsule 0.4 mg PO DAILY Qty: 7 0RF Rx Instructions: Begin night BEFORE surgery to prevent urinary retention cefadroxil 500 mg capsule 500 mg PO BID 7 Days Qty: 14 0RF Rx Instructions: Take 1 cap twice a day to prevent infection metoprolol succinate 50 mg tablet extended release 24 hr 50 mg PO QAM Qty: 90 3RF glucosamine-chondroitin 900 mg tablet 900 mg PO UD Patient Comments: takes 2 tablets bid lovastatin 40 mg tablet 40 mg PO QPM Qty: 90 3RF empagliflozin 25 mg tablet 25 mg PO QAM insulin aspart U-100 [Novolog FlexPen U-100 Insulin] 100 unit/mL (3 mL) insulin pen 1 sliding scale dose SUBCUT DIRECTED Patient Comments: states take 6units bid usually Rx Instructions: 6 units at breakfast, 6 units at lunch IF pt eats lunch, and 12 units at dinner. hydroxychloroquine 200 mg tablet 400 mg PO QPM Neupro 2 mg/24 hour patch 24 hour 2 mg transdermal DAILY Qty: 30 5RF Rx Instructions: Hold hand upon patch for 30 seconds to activate. Change patch every 24 hrs. Rotate sites. metformin 1,000 mg tablet 1,000 mg PO BID Qty: 180 liraglutide 0.6 mg/0.1 mL (18 mg/3 mL) pen injector 1.8 mg subcut QAM Qty: 81 Patient Comments: TAKES QAM ascorbic acid (vitamin C) 1,000 mg tablet 1 gm PO UD PRN (Reason: "not on a regular basis") omega-3 fatty acids [Fish Oil Concentrate] 1,000 mg capsule 1,000 mg PO QAM Patient Comments: aware of holding instructions albuterol sulfate [Ventolin HFA] 90 mcg/actuation HFA aerosol inhaler 2 puff inhalation QID PRN (Reason: shortness of breath or wheezing) Qty: 8.5 3RF Patient Comments: USES USUALLY ONCE PER DAY alprazolam [Xanax] 0.5 mg tablet 0.5 mg PO .COMPLEX Qty: 2 0RF Rx Instructions: 1 pill 1 hour before MRI study, the second pill just before the study. Lantus Solostar U-100 Insulin 100 unit/mL (3 mL) insulin pen 14 unit SUBCUT HS Patient Comments: adjust per bsg at HS tadalafil 5 mg tablet 5 mg PO HS ciprofloxacin HCl [Cipro] 500 mg tablet 500 mg PO BID Qty: 6 0RF Discontinued tramadol 50 mg tablet 100 mg PO HS PRN (Reason: Pain) Qty: 180 0RF hydrocodone-acetaminophen 5-325 mg tablet 1 tab PO Q6H PRN (Reason: pain) Qty: 10 0RF Admission Data Admit Date/Time: 09/29/23 13:34 Attending Provider: Teodoro Malave Admit Provider: Teodoro Malave Primary Care Provider: Nupur Keating Other Providers: Eric,[facility]; Lb Mcgregor Other Interventions: Discharge Summary Assessment (RN) Last Done: 09/30/23 09:52
--- NOTE | 2023-09-30 11:39 | Hospitalist Progress Note ---
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 Physical Exam Physical Exam: The patient is awake, alert and oriented 3, well developed and well nourished, normocephalic and atraumatic, lying in bed and in no acute distress. HEENT--PERRL, EOMI, mucous membranes and oropharynx mildly dry Neck--supple. No JVD. No bruits. Thyroid normal, trachea midline, no adenopathy. Heart--normal S1 and S2. Grade 1 systolic murmur, no rubs or gallops. Lungs--clear bilaterally, no respiratory distress, no accessory muscle use. Abdomen--normal bowel sounds and soft. Mild epigastric and left sided abdominal pain Extremities--no cyanosis or clubbing. No edema. Dermatologic--normal skin turgor, normal color, no abnormal lymph nodes, no rash. Neurologic--cranial nerves II through XII grossly intact. Rheumatologic--normal range of motion. Psychiatric--normal affect. Results & Data Results & Data Vital Signs (Past 12 Hours) Vital Signs Temp Pulse Pulse Resp BP Pulse Ox O2 Del Method 09/30/23 09:52 98.2 F 53 L 58 L 17 155/82 H 96 09/30/23 07:27 98.2 F 58 L 17 155/82 H 96 Room Air 09/30/23 04:03 97.6 F 60 16 153/82 H 95 Room Air 09/29/23 23:43 98.2 F 62 18 134/76 96 Room Air PG Care Time/CCT Total # of Minutes Spent Total Time Spent with Patient: Total time spent is greater than 50% in coordination of care (as documented) at patient's floor/unit and/or counseling patient: Coding Level of Care Code 96511 SUB INP/OBS CARE 2/35MIN Diagnoses Type 2 diabetes mellitus without complication, with long-term current use of insulin E11.9; Z79.4 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 Diabetes mellitus complication status: without complication Essential hypertension I10 Hypertension type: essential hypertension BPH (benign prostatic hyperplasia) N40.0 Restless legs syndrome G25.81 Left knee DJD M17.12 Time Spent (min) 35 (1) Type 2 diabetes mellitus 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
== END 2023-09-30 11:29 | disposition home health service (06) ==
LOC: ASU 09:04 → 3E 09:04